=== PATIENT | male | born 1955 | race Caucasian/White ===

== ENCOUNTER → 2018-02-28 | Outpatient (CLI) | payer OTHER ==
[~2018-02-28] MED LIST: ALDACTONE25 MG PO; ASPIR 8181 MG PO; AUGMENTIN 875-1 EACH PO; CIPRO500 MG PO; CLINDAMYCIN HC300 MG PO; FLOMAX0.4 MG PO; GABAPENTIN300 MG PO; GLYBURIDE5 MG PO; HYDROCODON-ACE1 EAC9 PO; Insulin Detemir SQ; LEVAQUIN500 MG PO; LIPITOR20 MG; LIPITOR20 MG PO; LOSARTAN-HCTZ1 EAC1 PO; METFORMIN HCL500 MG PO; MINOCYCLINE HCL50 MG PO; NICODERM CQ1 EACH TOP; NORCO 7.5-3251 EACH PO; NORVASC5 MG PO; PEPCID20 MG PO; PHENERGAN SUPP25 MG PO; PLAVIX75 MG PO; TOPROL XL25 MG PO; ULTRAM50 MG PO; Z.0.AUGMENTIN 875-1 PO; Z.0.LOSARTAN POTAS10 PO; Z.0.VICODIN HP TAB1 PO; Z.2.METFORMIN HCL500 PO; ZOFRAN ODT4 MG SL; trental PO
--- NOTE | 2018-02-28 09:58 | Diagnostic Imaging Report ---
PROCEDURE: Frontal and lateral views of the chest. COMPARISON: Chest radiograph 01/03/12. INDICATIONS: PRE-OP, DENIES CHEST COMPLAINTS FINDINGS: Lines/tubes: None. Lungs: Densities in the right greater than left apical regions is again noted, likely representing overlying ribs, stable since 2011. The lungs are hyperinflated. No evidence of pneumonia or pulmonary edema. Pleura: There is no pleural effusion or pneumothorax. Heart and mediastinum: The cardiomediastinal silhouette is unchanged. Bones: No acute bony abnormality. IMPRESSION: No acute radiographic abnormality. Dictated by: APRIL BAUTISTA M.D. on 02/28/2018 at 10:05 Electronically approved by: APRIL BAUTISTA M.D. on 02/28/2018 at 10:05
== END ==
LOC: RAD 08:58
PROVIDERS: ATTEND Family Medicine
DX: Z01.810 Encounter for preprocedural cardiovascular examination (principal)
CPT/HCPCS: 71046

== ENCOUNTER → 2018-03-04 | Day surgery (SDC) | payer OTHER ==
[~2018-03-04] MED LIST changes: +FENTANYL CITRATE/PF 100MCG/2 ML INJ ONE; +MIDAZOLAM HCL 2 MG/2 ML VIAL ONE; +OR PHACO EYE KIT ONE; +PREOP PHACO EYE KIT ONE
--- OUTSIDE RECORDS SUMMARY | 2018-03-04 14:51 | XMS REPORT ---
Author Author [facility] [place] Address Unknown Phone Unavailable Care Team Providers Care [employer] Name Role Phone HORACIO US Unavailable Unavailable Problems This patient has no known problems. Allergies, Adverse Reactions, Alerts This patient has no known allergies or adverse reactions. Medications This patient has no known medications. Results Test Description Test Time Test Comments Text Results Atomic Results Result Comments CHEST 2 VIEWS 2018-02-28 10:05:00 [facility] [address] [address] Patient Name: TERESA ODOM MR #: [id number] : 1955 Age/Sex: 62/M Req #: [id number] Adm Physician: Ordered by: MAGEN NOBLE, HORACIO Matta MD Report #: [id number] Location: [facility] Room/Bed: Procedure: [id number] DX/CHEST 2 VIEWS Exam Date: 02/28/18 Exam Time: 0915 REPORT STATUS: Signed PROCEDURE: Frontal and lateral views of the chest. COMPARISON: Chest radiograph 01/03/12. INDICATIONS: PRE-OP, DENIES CHEST COMPLAINTS FINDINGS: Lines/tubes: None. Lungs: Densities in the right greater than left apical regions is again noted, likely representing overlying ribs, stable since 2011. The lungs are hyperinflated. No evidence of pneumonia or pulmonary edema. Pleura: There is no pleural effusion or pneumothorax. Heart and mediastinum: The cardiomediastinal silhouette is unchanged. Bones: No acute bony abnormality. IMPRESSION: No acute radiographic abnormality. Dictated by: APRIL BAUTISTA M.D. on 02/28/2018 at 10:05 Electronically approved by: APRIL BAUTISTA M.D. on 02/28/2018 at 10:05 Dictated By: APRIL BAUTISTA MD [id number] Transcribed By: MORIS on 02/28/18 1005 COPY TO: HORACIO US
[2018-03-04 16:15] VITALS: BP 164/64
== END | disposition home or self-care (01) ==
LOC: OR 13:01
PROVIDERS: ATTEND Ophthalmology
DX: H25.12 Age-related nuclear cataract, left eye (principal); E11.9 Type 2 diabetes mellitus without complications; I25.10 Atherosclerotic heart disease of native coronary artery without angina pectoris; I10 Essential (primary) hypertension; Z79.02 Long term (current) use of antithrombotics/antiplatelets; Z79.84 Long term (current) use of oral hypoglycemic drugs
CPT/HCPCS: 36415; 66984; 82948; J2250; V2632

== ENCOUNTER → 2018-03-18 | Day surgery (SDC) | payer OTHER ==
[~2018-03-18] MED LIST changes: +LABETALOL HCL 5 MG/ML 20ML VIAL ONE
[2018-03-18 11:30] VITALS: BP 134/71
== END | disposition home or self-care (01) ==
LOC: OR 07:52
PROVIDERS: ATTEND Ophthalmology
DX: H25.11 Age-related nuclear cataract, right eye (principal); E11.51 Type 2 diabetes mellitus with diabetic peripheral angiopathy without gangrene; I25.10 Atherosclerotic heart disease of native coronary artery without angina pectoris; E78.00 Pure hypercholesterolemia, unspecified; I10 Essential (primary) hypertension; Z88.5 Allergy status to narcotic agent
CPT/HCPCS: 36415; 66984; 82948; J2250; J3490; V2632

== ENCOUNTER 2018-11-18 04:54 | Inpatient (IN) | payer OTHER ==
[~2018-11-18] VITALS: Ht 193 cm; Wt 111.1 kg
[~2018-11-18 04:54] MED LIST changes: -FENTANYL CITRATE/PF 100MCG/2 ML INJ ONE; -LABETALOL HCL 5 MG/ML 20ML VIAL ONE; -MIDAZOLAM HCL 2 MG/2 ML VIAL ONE; -OR PHACO EYE KIT ONE; -PREOP PHACO EYE KIT ONE
[2018-11-18 06:03] LABS: BILIRUBIN,URINE NEGATIVE (NEGATIVE); COLOR,URINE YELLOW (YELLOW); KETONES,URINE NEGATIVE (NEGATIVE); LEUKOCYTE ESTERASE ,URINE MODERATE (NEGATIVE); NITRITE,URINE NEGATIVE (NEGATIVE); URINE UROBILINOGEN 0.2 mg/dL (0.2 - 1)
[2018-11-18 06:04] LABS: CLARITY,URINE CLOUDY (CLEAR); PROTEIN,URINE DIPSTICK 3+ (NEGATIVE)
[2018-11-18 06:10] LABS: INR 1.18; PROTHROMBIN TIME 15.6 seconds (11.9-14.5)
[2018-11-18] MEDS ORDERED: ONDANSETRON HCL INJ 2MG/ML 2ML 2 MG/ML VIAL IV STA (06:11)
[2018-11-18 06:17] LABS: ALBUMIN 2.8 g/dL (3.5-5.0); ALBUMIN/GLOBULIN RATIO 0.6 (0.8-2.0); ANION GAP 13.6 mmol/L (8-16); CALCIUM 9.1 mg/dL (8.4-10.2); CREATININE, SERUM 2.19 mg/dL (0.72-1.25); POTASSIUM 4.6 mmol/L (3.5-5.1)
[2018-11-18 06:27] LABS: BASOPHILS # (AUTO) 0.1 (0.0-0.1); BASOPHILS % 0.9 % (0.0-1.0); EOSINOPHILS # (AUTO) 0.6 (0.0-0.4); EOSINOPHILS % 3.9 % (0.0-6.0); HEMATOCRIT 29.5 % (38.2-49.6); HEMOGLOBIN 9.3 g/dL (14.0-18.0); LYMPHOCYTES # (AUTO) 2.1 (1.0-3.2); LYMPHOCYTES % 13.9 % (18.0-39.1); MEAN CORPUSCULAR HEMOGLOBIN 24.6 pg (28-32); MEAN CORPUSCULAR HGB CONC 31.5 g/dL (31-35); MONOCYTES # (AUTO) 0.9 (0.2-0.8); MONOCYTES % 6.3 % (4.4-11.3); NEUTROPHILS % 74.3 % (38.7-80.0); PLATELET COUNT 728 x10e3/uL (140-360); RED BLOOD COUNT 3.78 x10e6/uL (4.3-5.7); RED CELL DISTRIBUTION WIDTH 15.2 % (11.7-14.4)
[2018-11-18 06:33] LABS: EPITHELIAL CELLS,URINE MANY /LPF
[2018-11-18 06:35] LABS: BACTERIA,URINE FEW /HPF; RBC,URINE 0-5 /HPF (0-5); TRANSITIONAL EPI CELLS,URINE FEW; WBC,URINE (MAN) >50 /HPF (0-5)
--- NOTE | 2018-11-18 06:44 | Diagnostic Imaging Report ---
EXAMINATION: CHEST SINGLE (PORTABLE) COMPARISON: Report of chest x-ray performed 08/06/2015 INDICATION: Weakness ^weakness ^[id number] ^0615 DISCUSSION: Frontal view of the chest obtained at 0605 hours. HEART AND MEDIASTINUM: The cardiomediastinal silhouette is unremarkable. LINES: None. LUNGS: The lungs are diffusely hyperinflated. No pneumonia or pulmonary edema. PLEURA: No pleural effusion or pneumothorax. BONES AND SOFT TISSUES: No focal osseous lesion. Degenerative changes of the shoulders and acromioclavicular joints. The soft tissues are normal. IMPRESSION: Pulmonary hyperinflation suggestive of small airways disease. No acute cardiopulmonary process Signed by: Dr. Jane Swenson MD on 11/18/2018 6:41 AM
[2018-11-18] MEDS ORDERED: ONDANSETRON HCL INJ 2MG/ML 2ML 2 MG/ML VIAL IV PRN (06:45)
[2018-11-18] MEDS ORDERED: DEXTROSE 50% SYRINGE 50 ML IV PRN (07:15)
[2018-11-18] MEDS ORDERED: INSULIN REGULAR, HUMAN 100 UNIT/1 ML 3ML VIAL SQ SCH (07:30)
[2018-11-18] MEDS ORDERED: LACTATED RINGER'S 1,000 ML IV ONE (12:00)
[2018-11-18] MEDS ORDERED: CLONIDINE HCL 0.1 MG TAB PO PRN (12:15)
[2018-11-18] MEDS ORDERED: LACTULOSE SYRUP 20 GM/30 ML UDC PO ONE (12:15)
[2018-11-18] MEDS ORDERED: VANCOMYCIN 1GM/NS 250 ML 250 ML IV ONE (12:30)
[2018-11-18] MEDS: PANTOPRAZOLE SOD 40 MG TABEC PO SCH (13:22)
[2018-11-18] MEDS ORDERED: PIPER-TAZ 3.375 GM / NS 50ML IV SCH (14:00)
[2018-11-18] MEDS: PIPER-TAZ 3.375 GM 50 ML IV SCH ×2 (14:09→21:14)
--- NOTE | 2018-11-18 15:27 | Diagnostic Imaging Report ---
Exam: Right foot series, 3 views. Clinical History: Diabetic ulcer, concern for osteomyelitis Comparison: None. Findings: 3 views of the right foot demonstrate no acute fracture or dislocation. No significant soft tissue swelling or specific radiographic evidence of osteomyelitis. Degenerative bony proliferative changes involve the midfoot. Achilles enthesopathy and small plantar calcaneal spur. Impression: No acute osseous injury. No specific radiographic findings of osteomyelitis. Degenerative changes as above. Signed by: Norma Neil MD on 11/18/2018 3:24 PM
[2018-11-18 16:00] VITALS: BP 162/69
[2018-11-18] MEDS: LACTOBACILLUS ACIDOPHILUS CAPSULE PO SCH (16:51)
[2018-11-18] MEDS: INSULIN LISPRO 100 UNIT/1 ML 3ML VIAL SQ SCH ×2 (17:20→20:22)
[2018-11-18 18:02] VITALS: BP 162/69
[2018-11-18 20:00] VITALS: BP 148/65
[2018-11-18] MEDS: ATORVASTATIN 20 MG TAB PO SCH (20:57)
[2018-11-18 21:00] VITALS: BP 148/65
[2018-11-18] MEDS: HEPARIN SOD (PORCINE) 5,000 UNIT/ML VIAL SC SCH (21:30)
--- NOTE | 2018-11-18 21:30 | NUR ---
COMPLETED DRESSING CHANGE TO RIGHT FOOT. PATIENT TOLERATE WELL
[2018-11-19] VITALS (8 sets, daily range): BP systolic 136–174; BP diastolic 58–72
[2018-11-19] MEDS ORDERED: SODIUM CHLORIDE 0.9% 250ML 250 ML ONE (04:09)
[2018-11-19 05:37] LABS: BASOPHILS # (AUTO) 0.1 (0.0-0.1); BASOPHILS % 0.9 % (0.0-1.0); EOSINOPHILS # (AUTO) 0.5 (0.0-0.4); EOSINOPHILS % 4.3 % (0.0-6.0); HEMATOCRIT 26.8 % (38.2-49.6); HEMOGLOBIN 8.4 g/dL (14.0-18.0); LYMPHOCYTES # (AUTO) 1.8 (1.0-3.2); LYMPHOCYTES % 15.1 % (18.0-39.1); MEAN CORPUSCULAR HEMOGLOBIN 24.8 pg (28-32); MEAN CORPUSCULAR HGB CONC 31.3 g/dL (31-35); MEAN CORPUSCULAR VOLUME 79.1 fL (81-99); MONOCYTES # (AUTO) 0.9 (0.2-0.8); MONOCYTES % 7.2 % (4.4-11.3); NEUTROPHILS # (AUTO) 8.5 (2.1-6.9); NEUTROPHILS % 72.1 % (38.7-80.0); PLATELET COUNT 549 x10e3/uL (140-360); RED BLOOD COUNT 3.39 x10e6/uL (4.3-5.7); RED CELL DISTRIBUTION WIDTH 15.2 % (11.7-14.4)
[2018-11-19 05:46] LABS: INR 1.02; PROTHROMBIN TIME 13.9 seconds (11.9-14.5)
[2018-11-19 05:47] LABS: PARTIAL THROMBOPLASTIN TIME 34.7 seconds (23.8-35.5)
[2018-11-19 05:55] LABS: ANION GAP 10.7 mmol/L (8-16); CALCIUM 8.5 mg/dL (8.4-10.2); CHOL/HDL RATIO 4.3 (3.9-4.7); CREATININE, SERUM 2.64 mg/dL (0.72-1.25); POTASSIUM 4.7 mmol/L (3.5-5.1)
[2018-11-19] MEDS: PIPER-TAZ 3.375 GM 50 ML IV SCH (06:00)
[2018-11-19 06:23] LABS: % IRON SATURATION 5 % (15-50); IRON 12 ug/dL (65-175); TOTAL IRON BINDING CAPACITY 239 ug/dL (261-478); TRANSFERRIN 171 mg/dL (174-364)
--- NOTE | 2018-11-19 07:04 | NUR ---
RCD PT AT BED PT IS ALERT AND ORIENTED PT RESTING ON BED NO SIGNS OF ANY DISTRESS NOTED IV PATENT BED LOW AND LOCKED CALL LIGHT IN REACH
[2018-11-19] MEDS: PANTOPRAZOLE SOD 40 MG TABEC PO SCH (07:30)
[2018-11-19] MEDS: INSULIN LISPRO 100 UNIT/1 ML 3ML VIAL SQ SCH ×4 (07:30→20:56)
[2018-11-19] MEDS: LACTOBACILLUS ACIDOPHILUS CAPSULE PO SCH ×2 (09:00→16:55)
[2018-11-19] MEDS: CLOPIDOGREL BISULFATE 75 MG TAB PO SCH (09:00)
[2018-11-19] MEDS: HEPARIN SOD (PORCINE) 5,000 UNIT/ML VIAL SC SCH ×2 (09:00→21:20)
[2018-11-19] MEDS ORDERED: LACTATED RINGER'S 1,000 ML IV ONE (10:45)
[2018-11-19] MEDS: IRON SUCROSE 100 MG in SODIUM CHLORIDE 0.9% 100 ML 100 ML IV SCH (11:00)
[2018-11-19] MEDS ORDERED: PEG (High)/E-LYTE SOLN 4,000 ML BTL PO ONE (11:30)
--- NOTE | 2018-11-19 14:15 | NUR ---
PT WENT TO PROCEDURE IN SAFE CONDITION
--- NOTE | 2018-11-19 14:22 | NUR ---
Nutrition Screen Note RD Recommendation(s) for Physician / Nutrition Prescription: Rec adding ADA 2000 to cardiac diet Plan of Care: RD following, monitoring for tolerance and adequacy Nutrition reason for involvement: Nutrition risk trigger MST Primary Dx: weakness and anemia PMH: no H&P indicated RD Assessment: (11/19) 63yo M, who was admitted for weakness and anemia. Visited pt in the room. Pt reports eating well prior and during hospital stay. Stable weight. Pt denies any nausea or vomiting. Pt denies any chewing or swallowing difficulty. Pt will be given laxatives tonight for constipation. Will continue to monitor and follow. Malnutrition Evaluation (11/19/2018) The patient does not meet criteria for a specified degree of malnutrition at this time. Will re-evaluate at follow-up as appropriate. Diet Education Needs Assessment: Diet education not indicated. Nutrition Care Level: Low Signed by Sandy Simpson, MS, RD, LD
[2018-11-19] MEDS ORDERED: IOPAMIDOL 200 MG/ML 20 ML VIAL IT ONE (14:45)
--- NOTE | 2018-11-19 15:30 | NUR ---
PT BACK AFTER PROCEDURE
--- NOTE | 2018-11-19 16:37 | Diagnostic Imaging Report ---
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 Frontal Air Kerma: 30.9 mGy Contrast used: 15 cc Isovue 200 Estimated blood loss: None Specimens: None Implants: None DISCUSSION: The patient was positioned in the supine position on the angiographic table. A environmental health and safety leader image was obtained prior to contrast injection. Under continuous fluoroscopic guidance, a 5 [place] catheter and glide wire were navigated into the most superior cutaneous sinus and dilute contrast injection performed, demonstrating low of contrast through not work of subcutaneous channels communicating with several other areas of cutaneous sinus. There was no contrast opacification of the bladder, however this is likely because of low resistance decompression through other cutaneous sinuses. The patient was transported back to the floor in good condition. FINDINGS: Subcutaneous network of communicating cutaneous sinuses without definite opacification of bladder. IMPRESSION: Contrast sinogram of cutaneous sinuses showing subcutaneous network of connected channels. No definite opacification of the bladder, however given the patient's reported large volume urine leakage, this is presumably due to decompression of contrast through lower resistance pathways out of the other cutaneous sinuses rather than a true absence of communication with the bladder. Signed by: Norma Neil MD on 11/19/2018 4:34 PM
[2018-11-19] MEDS: CARVEDILOL 3.125 MG TAB PO SCH (16:54)
--- NOTE | 2018-11-19 17:28 | NUR ---
WOUND CARE CONSULT: THIS IS A 63 YEAR OLD MALE PATIENT ADMITTED TO [facility] FOR WEAKNESS AND ANEMIA. HEAD TO TOE SKIN ASSESSMENT PERFORMED. PATIENT HAS A REHMAN 3 DIABETIC ULCER TO THE RIGHT LATERAL FOOT MEASURING 3.7X3.5X0.7CM, 95% ESCHAR AND SLOUGH AND 5% PINK GRANULATION TO WOUND BED WITH PALPABLE BONES. NO PULSES NOTED WITH PALPATION TO PT AND DP PULSES. WOUND CULTURE OBTAINED FROM ULCER. DR. SANCHEZ HERE AT BEDSIDE TO ASSESS PATIENT; SHE IS EMPLOYEE WELLNESS/FITNESS COORDINATOR COVERING FOR DR. Eric PELLETIER. NO OTHER WOUNDS NOTED. PATIENT HAS OLD LEFT TMA SITE; INTACT. LABS: WBC11.74 OwnG5L0.5 ALB2.8 [id number] TOTAL PROTEIN 7.4 MEDICATIONS: ZOSYN RIGHT FOOT XRAY = NEGATIVE OSTEOMYELITIS LOWER EXT U/S = PENDING RECOMMENDATION: -APPLY ALTERNATING PRESSURE RELIEF MATTRESS. -APPLY RIGHT FOOT HEEL PROTECTOR WITH PILLOW SUSPENSION. -WOUND CULTURE TO RIGHT LATERAL FOOT ULCER OBTAINED. -NURSING TO CLEAN RIGHT LATERAL FOOT REHMAN 3 DIABETIC ULCER WITH NORMAL SALINE, PAT DRY, APPLY BETADINE WET TO DRY DRESSING; CHANGE DAILY AND PRN. -ENCOURAGE PATIENT TO TURN EVERY 2 HOURS AND PRN. THANK YOU FOR THIS WOUND CARE CONSULT. Addendum: 11/19/18 at 1751 by Cristina Mace RN Amended: Links added.
--- NOTE | 2018-11-19 18:42 | NUR ---
PT RESTING ON BED BED SIDE REPORT GIVEN TO ONCOMING NURSE
--- NOTE | 2018-11-19 18:45 | Consultation ---
DATE OF CONSULTATION: 11/19/[address] Tate covering for Dr. Janes Ambrocio. HISTORY OF PRESENT ILLNESS: This is a 63-year-old male, well known to Dr. Ambrocio. He has had history of ulcers in the past. He says he had a large wound at the medial aspect of the right foot that he healed. On the left, two weeks ago, he developed an ulcer. He saw him in the clinic. He began him on antibiotics. He was supposed to follow up this week, but because he got infected, he came into the hospital. PAST MEDICAL HISTORY: Diabetes, history of previous amputation, hypertension, neuropathy. FAMILY HISTORY: History of cancer, diabetes, hypertension, cardiac disease. ALLERGIES: MORPHINE. MEDICATIONS: Please refer to MAR. Of interest to this consult are piperacillin with tazobactam. IMAGING DATA: Foot x-ray is negative for osteomyelitis. Lower extremity ultrasound is pending result. LABORATORY DATA: His white blood count is decreasing, it went from 14.79 to 11.75. MICROBIOLOGY: He is pending culture and sensitivity. REVIEW OF SYSTEMS: Full-thickness ulcer to the lateral aspect of the right foot. PHYSICAL EXAMINATION: Pedal pulses are nonpalpable. Capillary filling time is delayed. There is no pedal hair growth noted. Skin is thin, shiny and atrophic. There is a full-thickness ulcer down to the level of the bone on the right. Erythema and edema are localized. At this point, no streaking erythema, no ascending lymphangitis. He has a cavus type of foot, it is nonreducible. Protective threshold is absent. ASSESSMENT: 1. Ulcer grade 3, right foot. 2. Diabetes with neuropathy and peripheral vascular disease. PLAN: At this point, he is pending vascular studies. He is refusing possible intervention normal and I suspect it will be since he has had a stent in the past, but he is no longer interested in any further treatment. I discussed with him that he is going to need revascularization to heal the wound on the lateral aspect if it is possible, he needs to offload the area, he is going to need specialized wound care; if he does not, he is going to require an amputation and possibly a more proximal amputation and he is aware of this. I have answered all questions. In the interim, we will do Betadine wet-to-dry, continue IV antibiotics, continue offloading and I will continue to follow. Thank you for letting me participate in the care of this patient. BETH Soler/VANESSA /[id number]
[2018-11-19] MEDS: TEMAZEPAM 15 MG CAP PO SCH (21:08)
[2018-11-19] MEDS: PIPERACILLIN/TAZOBAC 3.375 GM in SODIUM CHLORIDE 0.9% 100 ML IV SCH (21:08)
[2018-11-19] MEDS: ATORVASTATIN 20 MG TAB PO SCH (21:08)
[2018-11-20] VITALS (7 sets, daily range): BP systolic 132–152; BP diastolic 65–67
--- NOTE | 2018-11-20 01:24 | NUR ---
PATIENT REPORTED HE HAD 1 BM AT THIS TIME
[2018-11-20 05:30] LABS: BASOPHILS # (AUTO) 0.1 (0.0-0.1); BASOPHILS % 0.8 % (0.0-1.0); EOSINOPHILS # (AUTO) 0.4 (0.0-0.4); EOSINOPHILS % 4.1 % (0.0-6.0); HEMATOCRIT 24.4 % (38.2-49.6); LYMPHOCYTES # (AUTO) 1.7 (1.0-3.2); LYMPHOCYTES % 16.6 % (18.0-39.1); MEAN CORPUSCULAR HEMOGLOBIN 24.5 pg (28-32); MEAN CORPUSCULAR HGB CONC 31.1 g/dL (31-35); MEAN CORPUSCULAR VOLUME 78.7 fL (81-99); MONOCYTES # (AUTO) 0.9 (0.2-0.8); NEUTROPHILS # (AUTO) 7.2 (2.1-6.9); NEUTROPHILS % 69.1 % (38.7-80.0); PLATELET COUNT 459 x10e3/uL (140-360); RED CELL DISTRIBUTION WIDTH 15.4 % (11.7-14.4)
[2018-11-20 05:37] LABS: HEMOGLOBIN 7.6 g/dL (14.0-18.0)
[2018-11-20 06:01] LABS: ANION GAP 10.8 mmol/L (8-16); CALCIUM 8.1 mg/dL (8.4-10.2); CREATININE, SERUM 2.17 mg/dL (0.72-1.25); POTASSIUM 4.8 mmol/L (3.5-5.1)
--- NOTE | 2018-11-20 07:28 | NUR ---
PAGED DR PORTILLO AND NOTIFIED HEMOGLOBIN LEVEL HE SAID JUST WATCH THE PT
[2018-11-20] MEDS: PANTOPRAZOLE SOD 40 MG TABEC PO SCH (07:30)
[2018-11-20] MEDS: INSULIN LISPRO 100 UNIT/1 ML 3ML VIAL SQ SCH ×5 (07:30→20:30)
[2018-11-20] MEDS: CARVEDILOL 3.125 MG TAB PO SCH ×2 (08:00→17:00)
[2018-11-20] MEDS: PIPERACILLIN/TAZOBAC 3.375 GM in SODIUM CHLORIDE 0.9% 100 ML IV SCH (09:00)
[2018-11-20] MEDS: CLOPIDOGREL BISULFATE 75 MG TAB PO SCH (09:00)
[2018-11-20] MEDS: LACTOBACILLUS ACIDOPHILUS CAPSULE PO SCH ×2 (09:00→17:00)
--- NOTE | 2018-11-20 09:00 | NUR ---
heparin not given pt said he got the heparin this morning at 5 am
[2018-11-20] MEDS: IRON SUCROSE 100 MG in SODIUM CHLORIDE 0.9% 100 ML 100 ML IV SCH (11:00)
[2018-11-20] MEDS: NIFEDIPINE CR 30 MG TAB PO SCH (11:30)
--- NOTE | 2018-11-20 12:00 | NUR ---
DRESSING CHANGED ON RT FOOT
--- NOTE | 2018-11-20 17:54 | Consultation ---
DATE OF CONSULTATION: 11/20/2018 Cardiology Consultation REASON FOR CONSULTATION: Peripheral arterial disease. CONSULTING PHYSICIAN: Dr. Diehl. HISTORY OF PRESENT ILLNESS: Mr. Kaur is a 63-year-old male, who is a patient of Dr. Ambrocio and reports that he has been going there for tear over right leg ulcer. However, he reports that he has not been feeling well and for that reason, he selected emergency services. He reports that he is not willing to have any interventions done for his peripheral arterial disease. However, he had an arterial Doppler done on November 19, 2018, that shows total occlusion of the mid segment of the right femoral artery. He states that he does not wish to pursue any further hospital care and intends to go home tomorrow. For that reason, he does not want anymore questioning or anymore care offered to him. PHYSICAL EXAMINATION: Unable to complete. ASSESSMENT: 1. Ulcer to the right foot. 2. Peripheral arterial disease with past history of multiple interventions, last intervention done in 2016. 3. Diabetes mellitus type 2. 4. Anemia. 5. Coronary artery disease status post stent placement. RECOMMENDATION: We will discontinue services at this time until the patient decides to let us help him. For now, we will let Dr. Diehl manage his care. The patient is aware that he has a risk of limb loss and he states he will rather take that other than affect his kidneys anymore. He reports he intends to leave the hospital tomorrow. Dictated by Lay Rod NP MD KEN Landeros/VANESSA /[id number]
--- NOTE | 2018-11-20 18:40 | NUR ---
PT RESTING ON BED BED SIDE REPORT GIVEN TO ONCOMING NURSE
[2018-11-20] MEDS: TEMAZEPAM 15 MG CAP PO SCH (20:28)
[2018-11-20] MEDS: ATORVASTATIN 20 MG TAB PO SCH (20:28)
[2018-11-21 02:00] VITALS: BP 103/57
[2018-11-21 02:01] VITALS: BP 149/66
[2018-11-21 05:24] LABS: BASOPHILS # (AUTO) 0.1 (0.0-0.1); BASOPHILS % 1.2 % (0.0-1.0); EOSINOPHILS # (AUTO) 0.6 (0.0-0.4); HEMATOCRIT 24.4 % (38.2-49.6); HEMOGLOBIN 7.6 g/dL (14.0-18.0); LYMPHOCYTES # (AUTO) 1.6 (1.0-3.2); LYMPHOCYTES % 17.1 % (18.0-39.1); MEAN CORPUSCULAR HEMOGLOBIN 24.8 pg (28-32); MEAN CORPUSCULAR HGB CONC 31.1 g/dL (31-35); MEAN CORPUSCULAR VOLUME 79.5 fL (81-99); MONOCYTES # (AUTO) 0.9 (0.2-0.8); MONOCYTES % 9.6 % (4.4-11.3); NEUTROPHILS % 65.8 % (38.7-80.0); PLATELET COUNT 435 x10e3/uL (140-360); RED BLOOD COUNT 3.07 x10e6/uL (4.3-5.7); RED CELL DISTRIBUTION WIDTH 15.6 % (11.7-14.4)
[2018-11-21 05:27] VITALS: BP 148/64
[2018-11-21 05:40] LABS: ANION GAP 11.9 mmol/L (8-16); CALCIUM 8.2 mg/dL (8.4-10.2); CREATININE, SERUM 2.11 mg/dL (0.72-1.25); POTASSIUM 4.9 mmol/L (3.5-5.1)
[2018-11-21] MEDS: INSULIN LISPRO 100 UNIT/1 ML 3ML VIAL SQ SCH ×2 (07:30→11:30)
[2018-11-21 08:00] VITALS: BP 157/70
[2018-11-21 08:10] VITALS: BP 157/70
[2018-11-21] MEDS: CARVEDILOL 3.125 MG TAB PO SCH (09:14)
[2018-11-21] MEDS: CLOPIDOGREL BISULFATE 75 MG TAB PO SCH (09:14)
[2018-11-21] MEDS: LACTOBACILLUS ACIDOPHILUS CAPSULE PO SCH (09:14)
[2018-11-21] MEDS: PANTOPRAZOLE SOD 40 MG TABEC PO SCH (09:14)
[2018-11-21] MEDS: NIFEDIPINE CR 30 MG TAB PO SCH (09:14)
[2018-11-21 12:00] VITALS: BP 153/65
[2018-11-21] MEDS: IRON SUCROSE 100 MG in SODIUM CHLORIDE 0.9% 100 ML 100 ML IV SCH (12:00)
[2018-11-21] MEDS ORDERED: RESTORIL15 MG PO (12:52)
--- NOTE | 2018-11-21 13:10 | NUR ---
right AC IV discontinued. No s/s of acute distress noted. 2x2 gauze and tape placed. Taken via wheelchair by PCT to personal. Accompanied by and daughter. AAOX4 to time, person, place, situation. Respirations even and unlabored. Dressing to right foot clean, dry, and intact. Discharge instruction, rx, and all personal belongings taken with patient.
[2018-11-21] MEDS ORDERED: ONDANSETRON HCL 4 MG ORAL DISINTEGRATING TAB PO PRN (13:45)
--- NOTE | 2018-11-21 14:47 | Progress Note ---
DATE: 11/21/2018 Dr. Tate covering for Dr. Janes Ambrocio. HISTORY OF PRESENT ILLNESS: The patient was seen at bedside. White blood count has decreased. It is down to 9.13. He did see Dr. Luna for Interventional Cardiology, but he does not want any procedures. He is aware that he is a high risk for amputation, but wants to do local wound care. Pedal pulses are not palpable. Capillary filling time is delayed. Skin temperature is warm to cooler. No pedal hair growth is noted. There is a full-thickness ulcer to the level of the bone on the foot, right. Capillary filling time is delayed. Skin is thin, shiny and atrophic. Erythema and edema have subsided. No streaking erythema. No ascending lymphangitis. Cavus type foot, now reducible with a drop foot. ASSESSMENT: 1. Ulcer grade 3, right foot. 2. Diabetes with neuropathy and peripheral vascular disease. 3. Cavus foot with a drop foot. PLAN: At this point, he no longer want to have any vascular interventions, so we are going to try local wound care. I am going to change the prescription to Santyl and would be sent to the pharmacy. He will do Santyl daily and he will follow up with me in the office. He is currently on antibiotic, which is responding to treatment of his white blood count and clinically the infection is subsiding. I will see him back in the office. He will call the office for any questions, concerns, or new problems arise. BETH Soler/VANESSA /[id number]
--- NOTE | 2018-11-22 00:30 | Discharge Summary ---
PRIMARY CARE DOCTOR: Dr. Musa Dunham. FINAL DIAGNOSIS: Iron deficiency anemia. SECONDARY DIAGNOSES: 1. Right foot chronic diabetic ulcer. 2. Severe peripheral vascular disease including right femoral artery occlusion. 3. Stage 3 chronic kidney disease. 4. 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 5. Chronic obstructive pulmonary disease, stable. 6. Diabetes, stable. 7. Uncontrolled hypertension, better. CONSULTANTS: 1. Dr. Luna, Cardiology. 2. Dr. Janes Ambrocio, Podiatry. 3. Dr. De Anda, Urology. PROCEDURES/STUDIES PERFORMED: 1. Right leg arterial Doppler. 2. Fistulogram. HISTORY: Per [facility] and P. HOSPITAL COURSE: The patient was admitted with generalized weakness. This is likely due to iron deficiency anemia. His hemoglobin on admission was 9.3, at the time of discharge it was 7.6, but remained stable. Currently, the patient actually felt a little better, therefore transfusion was not necessary. He did receive intravenous infusion. The patient also came in with right chronic diabetic foot ulcer. Initially, WBC was 14.8. At the time of discharge, it was 9. The patient's C-reactive protein was normal. X-ray was negative for osteomyelitis. Therefore, this appears to be just chronic infection. No active infection is identified. However, on the arterial Doppler, the patient does have a complete right femoral artery occlusion. The patient was evaluated by a content development specialist. The patient states that he has had four intervention done in his legs already and they all failed, therefore he is now interested in having another one, especially given his stage 3 chronic kidney disease. Again, he did receive empirical antibiotics here, however, I will not give him any more since he just completed a course of p.o. antibiotic as an outpatient after the ulcer was debrided two weeks ago and also his C-reactive protein is normal as well. 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 Dr. De Anda was consulted. A fistulogram was done, however, we could not demonstrate a connection into the bladder. At this time, I will have him follow up with Dr. De Anda as an outpatient. The patient was seen and examined today. I have updated his family at the bedside in details as well. It took 33 minutes total to discharge the patient. The patient will follow up with his primary care doctor in two weeks as well. CONDITION ON DISCHARGE: Improved. DISCHARGE MEDICATIONS: Please see medication reconciliation form. MD JESSY Liriano/VANESSA /[id number] cc: Musa Dunham
== END 2018-11-21 13:10 | disposition home or self-care (01) | DRG 812 ==
LOC: ER 04:54 → ERHOLD 06:39 → MED/SURG2 16:06
PROVIDERS: ADMIT Internal Medicine; ATTEND Internal Medicine
PROC: BT101ZZ Fluoroscopy of Bladder using Low Osmolar Contrast (ICD-10-PCS; principal; 2018-11-19)
DX: D50.9 Iron deficiency anemia, unspecified (principal); N32.2 Vesical fistula, not elsewhere classified; L97.518 Non-pressure chronic ulcer of other part of right foot with other specified severity; E11.621 Type 2 diabetes mellitus with foot ulcer; Z79.4 Long term (current) use of insulin; E11.51 Type 2 diabetes mellitus with diabetic peripheral angiopathy without gangrene; J44.9 Chronic obstructive pulmonary disease, unspecified; E11.22 Type 2 diabetes mellitus with diabetic chronic kidney disease; E11.65 Type 2 diabetes mellitus with hyperglycemia; I12.9 Hypertensive chronic kidney disease with stage 1 through stage 4 chronic kidney disease, or unspecified chronic kidney disease; N18.3 Chronic kidney disease, stage 3 (moderate); I25.10 Atherosclerotic heart disease of native coronary artery without angina pectoris; Z95.5 Presence of coronary angioplasty implant and graft; M21.371 Foot drop, right foot; E11.42 Type 2 diabetes mellitus with diabetic polyneuropathy
CPT/HCPCS: 36415; 71045; 76080; 80048; 80053; 80061; 81001; 82948; 83036; 83540; 84466; 84484; 85025; 85610; 85730; 86140; 87071; 87075; 87205; 93005; 93926; 97139; 99284; J1644; J1756; J2405; J2543; J3370; J7050; J7121; Q9967

== ENCOUNTER 2020-02-17 23:50 | Inpatient (IN) | payer OTHER ==
[~2020-02-17] VITALS: Ht 193 cm; Wt 111.1 kg
[~2020-02-17 23:50] MED LIST changes: +RESTORIL15 MG PO
[2020-02-18] VITALS (8 sets, daily range): BP systolic 123–148; BP diastolic 50–81
[2020-02-18] MEDS ORDERED: ONDANSETRON HCL INJ 2MG/ML 2ML 2 MG/ML VIAL IV STA (00:12)
[2020-02-18] MEDS ORDERED: SODIUM CHLORIDE 0.9% 1000ML 1,000 ML IV ONE ×2 (00:15→00:45)
[2020-02-18] MEDS ORDERED: ACETAMINOPHEN 325 MG TAB PO ONE (00:15)
[2020-02-18 00:16] LABS: BASOPHILS # (AUTO) 0.1 (0.0-0.1); BASOPHILS % 0.4 % (0.0-1.0); EOSINOPHILS # (AUTO) 0.2 (0.0-0.4); EOSINOPHILS % 0.5 % (0.0-6.0); HEMATOCRIT 42.1 % (38.2-49.6); HEMOGLOBIN 14.1 g/dL (14.0-18.0); LYMPHOCYTES # (AUTO) 1.9 (1.0-3.2); LYMPHOCYTES % 6.2 % (18.0-39.1); MEAN CORPUSCULAR HEMOGLOBIN 29.7 pg (28-32); MEAN CORPUSCULAR HGB CONC 33.5 g/dL (31-35); MEAN CORPUSCULAR VOLUME 88.8 fL (81-99); MONOCYTES % 6.8 % (4.4-11.3); NEUTROPHILS # (AUTO) 25.5 (2.1-6.9); NEUTROPHILS % 85.1 % (38.7-80.0); PLATELET COUNT 375 x10e3/uL (140-360); RED BLOOD COUNT 4.74 x10e6/uL (4.3-5.7); RED CELL DISTRIBUTION WIDTH 13.6 % (11.7-14.4)
[2020-02-18] MEDS ORDERED: ONDANSETRON HCL INJ 2MG/ML 2ML 2 MG/ML VIAL ONE (00:26)
[2020-02-18] MEDS ORDERED: HYDROMORPHONE 1MG/1ML INJ IV ONE (00:30)
[2020-02-18] MEDS ORDERED: PIPER-TAZ 3.375 GM 50 ML ONE (00:30)
[2020-02-18] MEDS: PIPERACILLIN/TAZO 2.25 GM 50 ML IV SCH ×4 (00:30→21:17)
[2020-02-18 00:33] LABS: ALBUMIN/GLOBULIN RATIO 0.9 (0.8-2.0); ANION GAP 20.1 mmol/L (8-16); CALCIUM 9.6 mg/dL (8.4-10.2); CREATININE, SERUM 2.29 mg/dL (0.72-1.25); POTASSIUM 4.1 mmol/L (3.5-5.1)
[2020-02-18 00:40] LABS: CREATINE KINASE MB 0.7 ng/mL (0-5.0)
[2020-02-18] MEDS: CLINDAMYCIN 300MG 50 ML IV SCH ×4 (01:23→22:24)
[2020-02-18 01:27] LABS: BILIRUBIN,URINE NEGATIVE (NEGATIVE); CLARITY,URINE CLOUDY (CLEAR); COLOR,URINE YELLOW (YELLOW); KETONES,URINE NEGATIVE (NEGATIVE); LEUKOCYTE ESTERASE ,URINE SMALL (NEGATIVE); NITRITE,URINE NEGATIVE (NEGATIVE); PROTEIN,URINE DIPSTICK >=300 (NEGATIVE); URINE UROBILINOGEN 0.2 mg/dL (0.2 - 1)
[2020-02-18 01:37] LABS: BACTERIA,URINE MANY /HPF; EPITHELIAL CELLS,URINE MODERATE /LPF; WBC,URINE (MAN) 21-50 /HPF (0-5)
[2020-02-18] MEDS ORDERED: ONDANSETRON HCL INJ 2MG/ML 2ML 2 MG/ML VIAL IV PRN (03:15)
[2020-02-18] MEDS ORDERED: ACETAMINOPHEN 325 MG TAB PO PRN (03:15)
[2020-02-18] MEDS: SODIUM CHLORIDE 0.9% 1000ML 1,000 ML IV SCH ×2 (03:45→13:23)
[2020-02-18] MEDS: HYDROMORPHONE 1MG/1ML INJ IV PRN ×6 (03:45→22:35)
[2020-02-18] MEDS: PROMETHAZINE 12.5MG/ NACL 0.9% 12.5 MG/50 ML BAG IV PRN (09:35)
[2020-02-18] MEDS: INSULIN LISPRO 100 UNIT/1 ML 3ML VIAL SQ SCH ×2 (16:06→19:57)
[2020-02-18] MEDS ORDERED: TEMAZEPAM 15 MG CAP PO PRN (21:00)
[2020-02-18] MEDS: LACTATED RINGER'S 1,000 ML INJ SCH (22:24)
[2020-02-18] MEDS: ATORVASTATIN 20 MG TAB PO SCH (22:24)
[2020-02-18] MEDS: ONDANSETRON HCL INJ 2MG/ML 2ML 2 MG/ML VIAL IV PRN (22:30)
[2020-02-19] VITALS (8 sets, daily range): BP systolic 114–149; BP diastolic 49–61
[2020-02-19] MEDS: PROMETHAZINE 12.5MG/ NACL 0.9% 12.5 MG/50 ML BAG IV PRN ×2 (01:39→15:10)
[2020-02-19] MEDS: HYDROMORPHONE 1MG/1ML INJ IV PRN ×7 (02:21→22:46)
[2020-02-19] MEDS: CLINDAMYCIN 300MG 50 ML IV SCH ×3 (05:08→21:52)
[2020-02-19 05:23] LABS: BASOPHILS # (AUTO) 0.1 (0.0-0.1); BASOPHILS % 0.3 % (0.0-1.0); EOSINOPHILS # (AUTO) 0.3 (0.0-0.4); EOSINOPHILS % 1.4 % (0.0-6.0); HEMATOCRIT 32.2 % (38.2-49.6); HEMOGLOBIN 10.2 g/dL (14.0-18.0); LYMPHOCYTES # (AUTO) 1.7 (1.0-3.2); LYMPHOCYTES % 9.5 % (18.0-39.1); MEAN CORPUSCULAR HEMOGLOBIN 29.7 pg (28-32); MEAN CORPUSCULAR HGB CONC 31.7 g/dL (31-35); MEAN CORPUSCULAR VOLUME 93.9 fL (81-99); MONOCYTES # (AUTO) 1.5 (0.2-0.8); MONOCYTES % 8.6 % (4.4-11.3); NEUTROPHILS # (AUTO) 13.8 (2.1-6.9); NEUTROPHILS % 79.6 % (38.7-80.0); PLATELET COUNT 284 x10e3/uL (140-360); RED BLOOD COUNT 3.43 x10e6/uL (4.3-5.7); RED CELL DISTRIBUTION WIDTH 13.9 % (11.7-14.4)
[2020-02-19] MEDS: ONDANSETRON HCL INJ 2MG/ML 2ML 2 MG/ML VIAL IV PRN ×2 (05:37→22:46)
[2020-02-19 05:51] LABS: ALBUMIN 2.8 g/dL (3.5-5.0); ALBUMIN/GLOBULIN RATIO 0.9 (0.8-2.0); ANION GAP 10.9 mmol/L (8-16); CALCIUM 8.1 mg/dL (8.4-10.2); CREATININE, SERUM 2.39 mg/dL (0.72-1.25); POTASSIUM 4.9 mmol/L (3.5-5.1)
[2020-02-19] MEDS: PIPERACILLIN/TAZO 2.25 GM 50 ML IV SCH ×3 (06:12→22:46)
[2020-02-19] MEDS: LACTATED RINGER'S 1,000 ML INJ SCH ×3 (06:43→10:30)
[2020-02-19] MEDS: INSULIN LISPRO 100 UNIT/1 ML 3ML VIAL SQ SCH ×4 (07:30→21:00)
[2020-02-19] MEDS ORDERED: SUCCINYLCHOLINE CHLORIDE 20 MG/ML 10ML VIAL ONE (13:52)
[2020-02-19] MEDS ORDERED: LIDOCAINE HCL 2% LOCAL INJ 5 ML SDV VIAL INJ ONE (13:52)
[2020-02-19] MEDS ORDERED: ONDANSETRON HCL INJ 2MG/ML 2ML 2 MG/ML VIAL ONE (13:52)
[2020-02-19] MEDS ORDERED: PROPOFOL IV EMULSION 10 MG/ML 20 ML VIAL ONE (13:52)
[2020-02-19] MEDS ORDERED: SEVOFLURANE INHAL SOLN 250 ML PEN BTL ONE (13:52)
[2020-02-19] MEDS ORDERED: ESMOLOL HCL 100MG/10ML 10 MG/ML VIAL ONE (13:52)
[2020-02-19] MEDS ORDERED: MIDAZOLAM HCL 2 MG/2 ML VIAL ONE (14:29)
[2020-02-19] MEDS ORDERED: FENTANYL CITRATE/PF 100MCG/2 ML INJ ONE ×2 (14:29→18:00)
[2020-02-19] MEDS ORDERED: LIDOCAINE 2%/ EPINEPHRINE 20ML MDV ONE (16:38)
[2020-02-19] MEDS ORDERED: IOPAMIDOL 300MG/ML 50ML INFUS..BTL IV ONE (16:39)
[2020-02-19] MEDS ORDERED: BUPIVACAINE 0.25% 30ML SDV INJ ONE (16:39)
[2020-02-19] MEDS ORDERED: B&O 60MG R/S 60 MG SUPP PR ONE (16:39)
[2020-02-19] MEDS ORDERED: HYDROMORPHONE 1MG/1ML INJ ONE (18:14)
[2020-02-19] MEDS: ATORVASTATIN 20 MG TAB PO SCH (21:52)
[2020-02-20] VITALS (7 sets, daily range): BP systolic 91–179; BP diastolic 47–82
[2020-02-20] MEDS: HYDROMORPHONE 1MG/1ML INJ IV PRN ×5 (02:20→23:50)
[2020-02-20] MEDS: PROMETHAZINE 12.5MG/ NACL 0.9% 12.5 MG/50 ML BAG IV PRN ×3 (02:20→23:50)
[2020-02-20] MEDS ORDERED: HYDROMORPHONE 1MG/1ML INJ IV STA (04:34)
[2020-02-20] MEDS: CLINDAMYCIN 300MG 50 ML IV SCH ×3 (05:51→22:28)
[2020-02-20] MEDS: PIPERACILLIN/TAZO 2.25 GM 50 ML IV SCH ×3 (06:00→23:50)
[2020-02-20] MEDS ORDERED: METOPROLOL TARTRATE 25 MG TAB PO ONE (07:00)
[2020-02-20] MEDS: INSULIN LISPRO 100 UNIT/1 ML 3ML VIAL SQ SCH ×4 (07:30→20:08)
[2020-02-20] MEDS: ONDANSETRON HCL INJ 2MG/ML 2ML 2 MG/ML VIAL IV PRN (08:08)
[2020-02-20] MEDS ORDERED: DIGOXIN 0.25 MG TAB PO ONE (08:15)
[2020-02-20] MEDS ORDERED: METOPROLOL SUCCINATE 50 MG TAB XL PO ONE (08:15)
[2020-02-20] MEDS: LACTATED RINGER'S 1,000 ML INJ SCH ×2 (10:27→23:50)
[2020-02-20 11:29] LABS: BASOPHILS # (AUTO) 0.1 (0.0-0.1); BASOPHILS % 0.4 % (0.0-1.0); EOSINOPHILS # (AUTO) 0.3 (0.0-0.4); EOSINOPHILS % 1.4 % (0.0-6.0); HEMATOCRIT 32.4 % (38.2-49.6); HEMOGLOBIN 10.6 g/dL (14.0-18.0); LYMPHOCYTES # (AUTO) 1.2 (1.0-3.2); LYMPHOCYTES % 6.9 % (18.0-39.1); MEAN CORPUSCULAR HEMOGLOBIN 29.8 pg (28-32); MEAN CORPUSCULAR HGB CONC 32.7 g/dL (31-35); MONOCYTES # (AUTO) 1.5 (0.2-0.8); MONOCYTES % 8.4 % (4.4-11.3); NEUTROPHILS # (AUTO) 14.7 (2.1-6.9); NEUTROPHILS % 82.4 % (38.7-80.0); PLATELET COUNT 319 x10e3/uL (140-360); RED BLOOD COUNT 3.56 x10e6/uL (4.3-5.7); RED CELL DISTRIBUTION WIDTH 13.4 % (11.7-14.4)
[2020-02-20 11:48] LABS: ANION GAP 13.3 mmol/L (8-16); CALCIUM 7.6 mg/dL (8.4-10.2); CREATININE, SERUM 2.18 mg/dL (0.72-1.25); MAGNESIUM 1.6 MG/DL (1.3-2.1); POTASSIUM 4.3 mmol/L (3.5-5.1)
[2020-02-20 12:10] LABS: THYROID STIMULATING HORMONE 3.26 uIU/mL (0.350-4.940)
[2020-02-20] MEDS: METOPROLOL TARTRATE 50 MG TAB PO SCH ×2 (14:46→22:28)
[2020-02-20] MEDS ORDERED: ENOXAPARIN SOD INJ 40 MG/0.4 ML SYR SC SCH (17:00)
[2020-02-20] MEDS ORDERED: HYDROMORPHONE 2MG/ML 2 MG/ML ML IV PRN (17:00)
[2020-02-20] MEDS: ATORVASTATIN 20 MG TAB PO SCH (20:14)
[2020-02-21] VITALS: BP 156/57
[2020-02-21] MEDS: PIPERACILLIN/TAZO 2.25 GM 50 ML IV SCH ×2 (00:30→09:00)
[2020-02-21] MEDS: HYDROMORPHONE 1MG/1ML INJ IV PRN ×3 (02:59→10:50)
[2020-02-21 04:00] VITALS: BP 142/56
[2020-02-21 06:04] LABS: BASOPHILS # (AUTO) 0.1 (0.0-0.1); BASOPHILS % 0.6 % (0.0-1.0); EOSINOPHILS # (AUTO) 0.4 (0.0-0.4); EOSINOPHILS % 2.9 % (0.0-6.0); HEMATOCRIT 27.9 % (38.2-49.6); LYMPHOCYTES # (AUTO) 1.5 (1.0-3.2); LYMPHOCYTES % 11.9 % (18.0-39.1); MEAN CORPUSCULAR HEMOGLOBIN 30.1 pg (28-32); MEAN CORPUSCULAR HGB CONC 32.3 g/dL (31-35); MEAN CORPUSCULAR VOLUME 93.3 fL (81-99); MONOCYTES # (AUTO) 1.3 (0.2-0.8); MONOCYTES % 10.4 % (4.4-11.3); NEUTROPHILS % 73.5 % (38.7-80.0); PLATELET COUNT 259 x10e3/uL (140-360); RED BLOOD COUNT 2.99 x10e6/uL (4.3-5.7); RED CELL DISTRIBUTION WIDTH 13.5 % (11.7-14.4)
[2020-02-21] MEDS: CLINDAMYCIN 300MG 50 ML IV SCH ×2 (06:07→14:00)
[2020-02-21] MEDS: METOPROLOL TARTRATE 50 MG TAB PO SCH (06:08)
[2020-02-21 06:38] LABS: ALBUMIN/GLOBULIN RATIO 0.5 (0.8-2.0); ANION GAP 12.1 mmol/L (8-16); CALCIUM 7.7 mg/dL (8.4-10.2); CHOL/HDL RATIO 4.6 (3.9-4.7); CREATININE, SERUM 2.26 mg/dL (0.72-1.25); POTASSIUM 4.1 mmol/L (3.5-5.1)
[2020-02-21] MEDS: PROMETHAZINE 12.5MG/ NACL 0.9% 12.5 MG/50 ML BAG IV PRN (06:44)
[2020-02-21 06:58] LABS: THYROID STIMULATING HORMONE 2.255 uIU/mL (0.350-4.940)
[2020-02-21] MEDS: INSULIN LISPRO 100 UNIT/1 ML 3ML VIAL SQ SCH ×2 (07:30→11:30)
[2020-02-21 09:00] VITALS: BP 139/54
[2020-02-21] MEDS: ONDANSETRON HCL INJ 2MG/ML 2ML 2 MG/ML VIAL IV PRN (10:56)
[2020-02-21] MEDS: LACTATED RINGER'S 1,000 ML INJ SCH (10:56)
[2020-02-21 11:58] VITALS: BP 125/77
[2020-02-21] MEDS ORDERED: CLINDAMYCIN HC300 MG PO (16:12)
[2020-02-21] MEDS ORDERED: TYLENOL # 31 EA PO (16:13)
[2020-02-21] MEDS ORDERED: METOPROLOL TARTRATE 50 MG TAB PO SCH (17:00)
== END 2020-02-21 16:45 | disposition home or self-care (01) | DRG 854 ==
LOC: ER 02-18 00:07 → ERHOLD 02-18 03:07 → MED/SURG2 02-18 04:02
PROVIDERS: ADMIT Internal Medicine; ATTEND Internal Medicine
PROC: 0TND8ZZ Release Urethra, Via Natural or Artificial Opening Endoscopic (ICD-10-PCS; 2020-02-19)
PROC: 0T788ZZ Dilation of Bilateral Ureters, Via Natural or Artificial Opening Endoscopic (ICD-10-PCS; 2020-02-19)
PROC: BT141ZZ Fluoroscopy of Kidneys, Ureters and Bladder using Low Osmolar Contrast (ICD-10-PCS; 2020-02-19)
PROC: 0V950ZZ Drainage of Scrotum, Open Approach (ICD-10-PCS; principal; 2020-02-21)
DX: A41.9 Sepsis, unspecified organism (principal); M46.28 Osteomyelitis of vertebra, sacral and sacrococcygeal region; N39.0 Urinary tract infection, site not specified; N17.9 Acute kidney failure, unspecified; E11.22 Type 2 diabetes mellitus with diabetic chronic kidney disease; N49.2 Inflammatory disorders of scrotum; I12.9 Hypertensive chronic kidney disease with stage 1 through stage 4 chronic kidney disease, or unspecified chronic kidney disease; N18.30 Chronic kidney disease, stage 3 unspecified; I48.0 Paroxysmal atrial fibrillation; Z79.01 Long term (current) use of anticoagulants; N35.812 Other bulbous urethral stricture, male; Z11.59 Encounter for screening for other viral diseases; B95.7 Other staphylococcus as the cause of diseases classified elsewhere; E66.9 Obesity, unspecified; Z68.29 Body mass index [BMI] 29.0-29.9, adult; Z89.429 Acquired absence of other toe(s), unspecified side; E11.628 Type 2 diabetes mellitus with other skin complications; N43.3 Hydrocele, unspecified; Q54.9 Hypospadias, unspecified
CPT/HCPCS: 36415; 71045; 74176; 74420; 80048; 80053; 80061; 81001; 82550; 82553; 82948; 83605; 83735; 84443; 84484; 85025; 87040; 87071; 87075; 87086; 87186; 87205; 93005; 93306; 99251; 99284; J0330; J1170; J1650; J2001; J2250; J2405; J2543; J2550; J3010; J7030; J7121; U0002

== ENCOUNTER 2020-06-21 05:57 | Inpatient (IN) | payer OTHER ==
[~2020-06-21] VITALS: Ht 193 cm; Wt 94.8 kg
[~2020-06-21 05:57] MED LIST changes: +TYLENOL # 31 EA PO
[2020-06-21] MEDS ORDERED: SODIUM CHLORIDE 0.9% 1000ML 1,000 ML IV STA ×2 (06:17→08:14)
[2020-06-21] MEDS ORDERED: PANTOPRAZOLE 40 MG 10ML VIAL IV STA (06:17)
[2020-06-21] MEDS ORDERED: PANTOPRAZOLE INJ 40 MG in SODIUM CHLORIDE 0.9% 50ML 50 ML IV SCH (06:30)
[2020-06-21 06:32] LABS: BASOPHILS # (AUTO) 0.2 (0.0-0.1); BASOPHILS % 0.6 % (0.0-1.0); EOSINOPHILS % 0.1 % (0.0-6.0); LYMPHOCYTES # (AUTO) 1.5 (1.0-3.2); LYMPHOCYTES % 5.3 % (18.0-39.1); MEAN CORPUSCULAR HEMOGLOBIN 24.4 pg (28-32); MEAN CORPUSCULAR HGB CONC 28.9 g/dL (31-35); MEAN CORPUSCULAR VOLUME 84.6 fL (81-99); MONOCYTES # (AUTO) 1.5 (0.2-0.8); MONOCYTES % 5.2 % (4.4-11.3); NEUTROPHILS # (AUTO) 25.1 (2.1-6.9); NEUTROPHILS % 87.8 % (38.7-80.0); PLATELET COUNT 744 x10e3/uL (140-360); RED BLOOD COUNT 2.21 x10e6/uL (4.3-5.7)
[2020-06-21] MEDS ORDERED: PANTOPRAZOL 40MG/SOD CHL 0.9% 50 ML IV ONE (06:39)
[2020-06-21 06:49] LABS: HEMATOCRIT 18.7 % (38.2-49.6); HEMOGLOBIN 5.4 g/dL (14.0-18.0)
[2020-06-21] MEDS ORDERED: SODIUM CHLORIDE 0.9% 250ML 250 ML IV ONE ×2 (07:00→23:45)
[2020-06-21 07:03] LABS: ALBUMIN 3.2 g/dL (3.5-5.0); ALBUMIN/GLOBULIN RATIO 0.7 (0.8-2.0); ANION GAP 24.5 mmol/L (8-16); CALCIUM 8.5 mg/dL (8.4-10.2); CREATININE, SERUM 3.08 mg/dL (0.72-1.25); POTASSIUM 4.5 mmol/L (3.5-5.1)
[2020-06-21 07:11] LABS: CREATINE KINASE MB 3.1 ng/mL (0-5.0)
[2020-06-21] MEDS ORDERED: ONDANSETRON HCL INJ 2MG/ML 2ML 2 MG/ML VIAL IV STA (07:23)
[2020-06-21] MEDS ORDERED: CEFTRIAXONE SOD 1 GM/NS 50 ML 50 ML IV ONE ×2 (07:30→08:30)
[2020-06-21] MEDS ORDERED: ACETAMINOPHEN 325 MG TAB PO ONE (08:30)
[2020-06-21] MEDS ORDERED: SODIUM BICARBONATE 8.4% INJ 50 ML SYR IV STA (09:00)
[2020-06-21 10:06] LABS: ANION GAP 18.3 mmol/L (8-16); CALCIUM 7.8 mg/dL (8.4-10.2); CREATININE, SERUM 2.73 mg/dL (0.72-1.25); POTASSIUM 4.3 mmol/L (3.5-5.1)
[2020-06-21 10:39] LABS: CLARITY,URINE SL CLOUDY (CLEAR); COLOR,URINE YELLOW (YELLOW); KETONES,URINE TRACE (NEGATIVE); LEUKOCYTE ESTERASE ,URINE LARGE (NEGATIVE); NITRITE,URINE NEGATIVE (NEGATIVE); PROTEIN,URINE DIPSTICK >=300 (NEGATIVE); URINE UROBILINOGEN 0.2 mg/dL (0.2 - 1)
[2020-06-21 10:51] LABS: BACTERIA,URINE MANY /HPF; WBC,URINE (MAN) >50 /HPF (0-5)
[2020-06-21 10:52] LABS: RBC,URINE 0-5 /HPF (0-5)
[2020-06-21 10:53] LABS: TRANSITIONAL EPI CELLS,URINE FEW
[2020-06-21] MEDS ORDERED: LACTATED RINGER'S 1,000 ML INJ STA (10:54)
[2020-06-21 11:01] LABS: LYMPHOCYTES % (MANUAL) 4 % (19-48); MONOCYTES % (MANUAL) 5 % (3.4-9.0); NEUTROPHILS % (MANUAL) 90 % (40-74)
[2020-06-21 11:02] LABS: ANISOCYTOSIS MARKED; HYPOCHROMASIA MODERATE; PLATELET MORPHOLOGY COMMENT NORMAL; RBC MORPHOLOGY COMMENT ABNORMAL
[2020-06-21 11:03] LABS: PLATELET ESTIMATE MODERATELY INCREASED; POLYCHROMASIA FEW
[2020-06-21] MEDS: PANTOPRAZOL 40MG/SOD CHL 0.9% 50 ML IV SCH ×4 (11:03→22:58)
[2020-06-21 11:05] LABS: ELLIPTOCYTE, RBC SLIGHT
[2020-06-21 12:48] LABS: % IRON SATURATION 8 % (15-50); IRON 21 ug/dL (65-175); TOTAL IRON BINDING CAPACITY 272 ug/dL (261-478); TRANSFERRIN 194 mg/dL (174-364)
[2020-06-21 20:00] VITALS: BP 132/48
[2020-06-21 20:24] LABS: CREATINE KINASE MB 2.6 ng/mL (0-5.0)
[2020-06-21] MEDS ORDERED: IRON SUCROSE 100 MG in SODIUM CHLORIDE 0.9% 100 ML 100 ML IV SCH (22:00)
[2020-06-21] MEDS ORDERED: ACETAMINOPHEN 325 MG TAB PO PRN (22:00)
[2020-06-21] MEDS ORDERED: ONDANSETRON HCL INJ 2MG/ML 2ML 2 MG/ML VIAL IV PRN (22:00)
[2020-06-21 22:11] LABS: HEMATOCRIT 18.2 % (38.2-49.6); HEMOGLOBIN 5.6 g/dL (14.0-18.0)
[2020-06-22] VITALS (8 sets, daily range): BP systolic 108–157; BP diastolic 48–72
[2020-06-22] MEDS: PANTOPRAZOL 40MG/SOD CHL 0.9% 50 ML IV SCH ×5 (02:45→22:45)
[2020-06-22] MEDS ORDERED: SODIUM CHLORIDE 0.9% 250ML 250 ML ONE (03:55)
[2020-06-22] MEDS: INSULIN LISPRO 100 UNIT/1 ML 3ML VIAL SQ SCH ×4 (07:30→21:00)
[2020-06-22] MEDS: CYANOCOBALAMIN INJ 1,000 MCG/ML VIAL IM SCH (09:19)
[2020-06-22] MEDS: IRON SUCROSE 100 MG in SODIUM CHLORIDE 0.9% 100 ML 100 ML IV SCH (09:55)
[2020-06-22 10:10] LABS: BASOPHILS # (AUTO) 0.1 (0.0-0.1); BASOPHILS % 0.4 % (0.0-1.0); EOSINOPHILS # (AUTO) 0.3 (0.0-0.4); HEMOGLOBIN 7.9 g/dL (14.0-18.0); LYMPHOCYTES % 6.6 % (18.0-39.1); MEAN CORPUSCULAR HEMOGLOBIN 26.6 pg (28-32); MEAN CORPUSCULAR HGB CONC 31.6 g/dL (31-35); MEAN CORPUSCULAR VOLUME 84.2 fL (81-99); MONOCYTES # (AUTO) 1.1 (0.2-0.8); MONOCYTES % 7.5 % (4.4-11.3); NEUTROPHILS # (AUTO) 12.6 (2.1-6.9); PLATELET COUNT 354 x10e3/uL (140-360); RED BLOOD COUNT 2.97 x10e6/uL (4.3-5.7)
[2020-06-22 10:26] LABS: ALBUMIN 2.6 g/dL (3.5-5.0); ALBUMIN/GLOBULIN RATIO 0.7 (0.8-2.0); ANION GAP 14.9 mmol/L (8-16); CALCIUM 7.6 mg/dL (8.4-10.2); CREATININE, SERUM 2.58 mg/dL (0.72-1.25); POTASSIUM 3.9 mmol/L (3.5-5.1)
[2020-06-22 10:44] LABS: INR 1.14; PROTHROMBIN TIME 15.3 seconds (11.9-14.5)
[2020-06-22 10:57] LABS: CREATINE KINASE MB 0.8 ng/mL (0-5.0)
[2020-06-22] MEDS ORDERED: FENTANYL CITRATE/PF 100MCG/2 ML INJ ONE (13:20)
[2020-06-22] MEDS ORDERED: MIDAZOLAM HCL 2 MG/2 ML VIAL ONE (13:20)
[2020-06-22] MEDS ORDERED: PROPOFOL IV EMULSION 10 MG/ML 20 ML VIAL ONE (13:47)
[2020-06-22] MEDS ORDERED: LIDOCAINE HCL 2% LOCAL INJ 5 ML SDV VIAL INJ ONE (13:47)
[2020-06-22] MEDS ORDERED: GLUCAGON FOR INJ 1 MG VIAL ONE (13:47)
[2020-06-22] MEDS: METOPROLOL TARTRATE 25 MG TAB PO SCH (17:00)
[2020-06-23] VITALS (7 sets, daily range): BP systolic 136–147; BP diastolic 51–59
[2020-06-23] MEDS: PANTOPRAZOL 40MG/SOD CHL 0.9% 50 ML IV SCH ×4 (03:45→23:00)
[2020-06-23] MEDS: DIPHENHYDRAMINE HCL INJ 50 MG/ML VIAL IV PRN ×4 (06:15→20:40)
[2020-06-23 06:32] LABS: BASOPHILS # (AUTO) 0.1 (0.0-0.1); BASOPHILS % 0.4 % (0.0-1.0); EOSINOPHILS # (AUTO) 0.5 (0.0-0.4); EOSINOPHILS % 3.2 % (0.0-6.0); HEMATOCRIT 25.1 % (38.2-49.6); HEMOGLOBIN 7.7 g/dL (14.0-18.0); LYMPHOCYTES # (AUTO) 1.1 (1.0-3.2); MEAN CORPUSCULAR HEMOGLOBIN 26.1 pg (28-32); MEAN CORPUSCULAR HGB CONC 30.7 g/dL (31-35); MEAN CORPUSCULAR VOLUME 85.1 fL (81-99); MONOCYTES # (AUTO) 1.1 (0.2-0.8); MONOCYTES % 6.9 % (4.4-11.3); NEUTROPHILS # (AUTO) 13.3 (2.1-6.9); PLATELET COUNT 372 x10e3/uL (140-360); RED BLOOD COUNT 2.95 x10e6/uL (4.3-5.7); RED CELL DISTRIBUTION WIDTH 18.1 % (11.7-14.4)
[2020-06-23 06:57] LABS: ALBUMIN 2.6 g/dL (3.5-5.0); ALBUMIN/GLOBULIN RATIO 0.7 (0.8-2.0); ANION GAP 13.7 mmol/L (8-16); CALCIUM 7.6 mg/dL (8.4-10.2); CHOL/HDL RATIO 7.6 (3.9-4.7); CREATININE, SERUM 2.27 mg/dL (0.72-1.25); POTASSIUM 3.7 mmol/L (3.5-5.1)
[2020-06-23 07:20] LABS: THYROID STIMULATING HORMONE 1.472 uIU/mL (0.350-4.940)
[2020-06-23] MEDS: INSULIN LISPRO 100 UNIT/1 ML 3ML VIAL SQ SCH ×4 (07:30→21:00)
[2020-06-23] MEDS ORDERED: SODIUM CHLORIDE 0.9% 250ML 250 ML ONE ×2 (09:42→09:55)
[2020-06-23] MEDS: CYANOCOBALAMIN INJ 1,000 MCG/ML VIAL IM SCH (09:45)
[2020-06-23] MEDS: METOPROLOL TARTRATE 25 MG TAB PO SCH ×2 (09:45→16:41)
[2020-06-23] MEDS: IRON SUCROSE 100 MG in SODIUM CHLORIDE 0.9% 100 ML 100 ML IV SCH (10:27)
[2020-06-23] MEDS: CEFTRIAXONE SOD 1 GM/NS 50 ML 50 ML IV SCH (12:00)
[2020-06-23] MEDS ORDERED: METHYLPREDNISOLONE SOD SUCC 40 MG/ML VIAL 1ML IV ONE (15:45)
[2020-06-24] VITALS (7 sets, daily range): BP systolic 121–140; BP diastolic 46–65
[2020-06-24] MEDS: DIPHENHYDRAMINE HCL INJ 50 MG/ML VIAL IV PRN ×4 (01:02→20:54)
[2020-06-24] MEDS: PANTOPRAZOL 40MG/SOD CHL 0.9% 50 ML IV SCH ×5 (03:10→20:49)
[2020-06-24 06:45] LABS: BASOPHILS % 0.1 % (0.0-1.0); EOSINOPHILS % 0.1 % (0.0-6.0); HEMATOCRIT 24.7 % (38.2-49.6); HEMOGLOBIN 7.6 g/dL (14.0-18.0); LYMPHOCYTES # (AUTO) 0.5 (1.0-3.2); LYMPHOCYTES % 4.9 % (18.0-39.1); MEAN CORPUSCULAR HEMOGLOBIN 26.2 pg (28-32); MEAN CORPUSCULAR HGB CONC 30.8 g/dL (31-35); MEAN CORPUSCULAR VOLUME 85.2 fL (81-99); MONOCYTES # (AUTO) 0.5 (0.2-0.8); MONOCYTES % 4.7 % (4.4-11.3); NEUTROPHILS # (AUTO) 9.3 (2.1-6.9); NEUTROPHILS % 89.7 % (38.7-80.0); PLATELET COUNT 322 x10e3/uL (140-360); RED CELL DISTRIBUTION WIDTH 18.4 % (11.7-14.4)
[2020-06-24] MEDS: INSULIN LISPRO 100 UNIT/1 ML 3ML VIAL SQ SCH ×4 (07:30→20:54)
[2020-06-24 07:31] LABS: ANION GAP 14.3 mmol/L (8-16); CALCIUM 7.8 mg/dL (8.4-10.2); CREATININE, SERUM 2.39 mg/dL (0.72-1.25); POTASSIUM 4.3 mmol/L (3.5-5.1)
[2020-06-24] MEDS: METOPROLOL TARTRATE 25 MG TAB PO SCH ×2 (09:00→17:16)
[2020-06-24] MEDS: CYANOCOBALAMIN INJ 1,000 MCG/ML VIAL IM SCH (09:00)
[2020-06-24] MEDS: IRON SUCROSE 100 MG in SODIUM CHLORIDE 0.9% 100 ML 100 ML IV SCH (09:49)
[2020-06-24] MEDS: CEFTRIAXONE SOD 1 GM/NS 50 ML 50 ML IV SCH (11:59)
[2020-06-24] MEDS ORDERED: MELATONIN 5 MG TABLET PO PRN (20:15)
[2020-06-25] VITALS: BP 133/53
[2020-06-25] MEDS: PANTOPRAZOL 40MG/SOD CHL 0.9% 50 ML IV SCH ×3 (03:15→12:00)
[2020-06-25 04:00] VITALS: BP 132/50
[2020-06-25 06:53] LABS: HEMATOCRIT 26.3 % (38.2-49.6)
[2020-06-25 07:10] LABS: ANION GAP 12.2 mmol/L (8-16); CALCIUM 7.5 mg/dL (8.4-10.2); CREATININE, SERUM 2.36 mg/dL (0.72-1.25); POTASSIUM 4.2 mmol/L (3.5-5.1)
[2020-06-25] MEDS: INSULIN LISPRO 100 UNIT/1 ML 3ML VIAL SQ SCH ×3 (07:30→16:30)
[2020-06-25 07:45] VITALS: BP 146/59
[2020-06-25 08:45] VITALS: BP 146/59
[2020-06-25] MEDS: DIPHENHYDRAMINE HCL INJ 50 MG/ML VIAL IV PRN ×2 (08:55→16:04)
[2020-06-25] MEDS: CIPROFLOXACIN 500 MG TAB PO SCH ×2 (09:27→17:01)
[2020-06-25] MEDS: CYANOCOBALAMIN INJ 1,000 MCG/ML VIAL IM SCH (09:27)
[2020-06-25] MEDS: METOPROLOL TARTRATE 25 MG TAB PO SCH ×2 (09:28→17:02)
[2020-06-25 13:04] VITALS: BP 127/59
[2020-06-25 17:51] VITALS: BP 135/51
== END 2020-06-25 17:42 | disposition home or self-care (01) | DRG 368 ==
LOC: ER 07:36 → ERHOLD 08:03 → IMCU 20:30 → MED/SURG3 06-22 15:44
PROVIDERS: ADMIT Internal Medicine; ATTEND Internal Medicine
PROC: 0DJ08ZZ Inspection of Upper Intestinal Tract, Via Natural or Artificial Opening Endoscopic (ICD-10-PCS; principal; 2020-06-21)
PROC: 30233N1 Transfusion of Nonautologous Red Blood Cells into Peripheral Vein, Percutaneous Approach (ICD-10-PCS; 2020-06-21)
DX: K22.6 Gastro-esophageal laceration-hemorrhage syndrome (principal); I21.A1 Myocardial infarction type 2; D62 Acute posthemorrhagic anemia; N17.9 Acute kidney failure, unspecified; E11.52 Type 2 diabetes mellitus with diabetic peripheral angiopathy with gangrene; I96 Gangrene, not elsewhere classified; N39.0 Urinary tract infection, site not specified; K22.11 Ulcer of esophagus with bleeding; K29.71 Gastritis, unspecified, with bleeding; K92.0 Hematemesis; N18.30 Chronic kidney disease, stage 3 unspecified; E11.22 Type 2 diabetes mellitus with diabetic chronic kidney disease; I12.9 Hypertensive chronic kidney disease with stage 1 through stage 4 chronic kidney disease, or unspecified chronic kidney disease; Z79.899 Other long term (current) drug therapy; I25.10 Atherosclerotic heart disease of native coronary artery without angina pectoris; Z89.422 Acquired absence of other left toe(s); Z20.822 Contact with and (suspected) exposure to COVID-19; L29.9 Pruritus, unspecified
CPT/HCPCS: 36415; 43235; 71045; 74176; 80048; 80053; 80061; 81001; 82550; 82553; 82607; 82746; 82948; 83540; 83605; 84443; 84466; 84484; 85014; 85018; 85025; 85045; 85610; 85730; 86850; 86900; 86920; 87040; 87086; 87186; 93005; 93306; 96361; 99251; 99285; J0696; J1200; J1610; J1756; J2001; J2250; J2405; J2920; J3010; J3420; J7030; J7050; J7121; P9016; U0002

== ENCOUNTER 2020-08-02 16:38 | Emergency (ER) | payer OTHER ==
[~2020-08-02] VITALS: Ht 193 cm; Wt 94.8 kg
== END 2020-08-02 19:00 | disposition home or self-care (01) ==
LOC: ER 17:11
DX: L29.9 Pruritus, unspecified (principal); I10 Essential (primary) hypertension; E11.9 Type 2 diabetes mellitus without complications
CPT/HCPCS: 99282

== ENCOUNTER 2020-10-05 21:29 | Inpatient (IN) | payer OTHER ==
[~2020-10-05] VITALS: Ht 193 cm; Wt 108.0 kg
[2020-10-05] MEDS ORDERED: AMIODARONE HCL 360MG 200 ML IV SCH (22:00)
[2020-10-05] MEDS ORDERED: AMIODARONE 900MG 500 ML IV ONE (22:00)
[2020-10-05] MEDS ORDERED: AMIODARONE HCL 150MG 100 ML IV ONE (22:00)
[2020-10-05] MEDS ORDERED: AMIODARONE HCL 150MG 100 ML ONE (22:01)
[2020-10-05 22:06] LABS: BASOPHILS # (AUTO) 0.1 (0.0-0.1); BASOPHILS % 0.4 % (0.0-1.0); EOSINOPHILS # (AUTO) 0.2 (0.0-0.4); EOSINOPHILS % 1.2 % (0.0-6.0); HEMATOCRIT 25.6 % (38.2-49.6); HEMOGLOBIN 7.5 g/dL (14.0-18.0); LYMPHOCYTES # (AUTO) 0.9 (1.0-3.2); LYMPHOCYTES % 7.3 % (18.0-39.1); MEAN CORPUSCULAR HEMOGLOBIN 22.2 pg (28-32); MEAN CORPUSCULAR HGB CONC 29.3 g/dL (31-35); MEAN CORPUSCULAR VOLUME 75.7 fL (81-99); MONOCYTES # (AUTO) 1.4 (0.2-0.8); MONOCYTES % 11.5 % (4.4-11.3); NEUTROPHILS # (AUTO) 9.7 (2.1-6.9); NEUTROPHILS % 79.2 % (38.7-80.0); PLATELET COUNT 473 x10e3/uL (140-360); RED BLOOD COUNT 3.38 x10e6/uL (4.3-5.7); RED CELL DISTRIBUTION WIDTH 19.1 % (11.7-14.4)
[2020-10-05 22:20] LABS: INR 0.97; PROTHROMBIN TIME 13.5 seconds (11.9-14.5)
[2020-10-05 22:21] LABS: PARTIAL THROMBOPLASTIN TIME 28.9 seconds (23.8-35.5)
[2020-10-05 22:22] LABS: ALBUMIN 2.5 g/dL (3.5-5.0); ALBUMIN/GLOBULIN RATIO 0.6 (0.8-2.0); ANION GAP 15.6 mmol/L (8-16); CALCIUM 8.4 mg/dL (8.4-10.2); CREATININE, SERUM 2.33 mg/dL (0.72-1.25); POTASSIUM 4.6 mmol/L (3.5-5.1)
[2020-10-05] MEDS ORDERED: DEXTROSE 50% SYRINGE 50 ML IV STA ×2 (22:25→23:53)
[2020-10-05 22:29] LABS: CREATINE KINASE MB 3.1 ng/mL (0-5.0)
[2020-10-05 22:30] LABS: B-TYPE NATRIURETIC PEPTIDE2 2906.8 pg/mL (0-100)
[2020-10-05] MEDS ORDERED: DEXTROSE 50% SYRINGE 50 ML IV ONE (23:58)
[2020-10-06] VITALS (21 sets, daily range): BP systolic 92–152; BP diastolic 43–94
[2020-10-06] MEDS ORDERED: AMIODARONE HCL 360MG 200 ML IV SCH
[2020-10-06] MEDS ORDERED: ASPIRIN 81 MG CHEW TAB PO STA (00:12)
[2020-10-06] MEDS ORDERED: FUROSEMIDE INJ 10 MG/ML 4 ML VIAL IV SCH (00:15)
[2020-10-06] MEDS: SODIUM CHLORIDE FLUSH 10 ML SYR INJ PRN (00:29)
[2020-10-06] MEDS: DEXTROSE 50% SYRINGE 50 ML IV PRN ×4 (00:29→06:21)
[2020-10-06] MEDS ORDERED: ASPIRIN 81 MG CHEW TAB PO ONE (00:45)
[2020-10-06 01:20] LABS: CLARITY,URINE SL CLOUDY (CLEAR); COLOR,URINE YELLOW (YELLOW); KETONES,URINE NEGATIVE (NEGATIVE); LEUKOCYTE ESTERASE ,URINE TRACE (NEGATIVE); NITRITE,URINE NEGATIVE (NEGATIVE); PROTEIN,URINE DIPSTICK 2+ (NEGATIVE); URINE UROBILINOGEN 0.2 mg/dL (0.2 - 1)
[2020-10-06 01:26] LABS: BACTERIA,URINE MODERATE /HPF; EPITHELIAL CELLS,URINE MODERATE /LPF; RBC,URINE 0-5 /HPF (0-5)
[2020-10-06 07:02] LABS: BASOPHILS # (AUTO) 0.1 (0.0-0.1); BASOPHILS % 0.4 % (0.0-1.0); EOSINOPHILS # (AUTO) 0.1 (0.0-0.4); EOSINOPHILS % 1.1 % (0.0-6.0); HEMATOCRIT 24.9 % (38.2-49.6); HEMOGLOBIN 7.2 g/dL (14.0-18.0); LYMPHOCYTES # (AUTO) 0.7 (1.0-3.2); LYMPHOCYTES % 5.7 % (18.0-39.1); MEAN CORPUSCULAR HGB CONC 28.9 g/dL (31-35); MEAN CORPUSCULAR VOLUME 75.9 fL (81-99); MONOCYTES # (AUTO) 1.4 (0.2-0.8); MONOCYTES % 11.4 % (4.4-11.3); NEUTROPHILS # (AUTO) 9.9 (2.1-6.9); NEUTROPHILS % 80.9 % (38.7-80.0); PLATELET COUNT 469 x10e3/uL (140-360); RED BLOOD COUNT 3.28 x10e6/uL (4.3-5.7); RED CELL DISTRIBUTION WIDTH 19.2 % (11.7-14.4)
[2020-10-06 07:10] LABS: ANION GAP 14.7 mmol/L (8-16); CREATININE, SERUM 2.33 mg/dL (0.72-1.25); POTASSIUM 4.7 mmol/L (3.5-5.1)
[2020-10-06 07:30] LABS: CREATINE KINASE MB 3.3 ng/mL (0-5.0)
[2020-10-06] MEDS ORDERED: ACETAMINOPHEN/CODEINE 300MG - 30MG TAB PO PRN (08:15)
[2020-10-06] MEDS ORDERED: CLOPIDOGREL BISULFATE 75 MG TAB PO SCH (09:00)
[2020-10-06] MEDS ORDERED: GLIPIZIDE ER5 MG PO (13:05)
[2020-10-06] MEDS ORDERED: FLOMAX0.4 MG PO (13:05)
[2020-10-06] MEDS ORDERED: METFORMIN HCL500 M1 PO (13:06)
[2020-10-06] MEDS ORDERED: DOXEPIN HCL25 MG PO (13:07)
[2020-10-06] MEDS ORDERED: LOSARTAN-HCTZ1 EAC1 PO (13:07)
[2020-10-06] MEDS ORDERED: TRAZODONE HCL100 MG PO (13:08)
[2020-10-06] MEDS ORDERED: NEURONTIN100 MG PO (13:08)
[2020-10-06] MEDS ORDERED: DEXTROSE 50% SYRINGE 50 ML IV PRN (14:00)
[2020-10-06] MEDS ORDERED: CEFTRIAXONE SOD 1 GM VIAL IV SCH (15:30)
[2020-10-06] MEDS: FAMOTIDINE 20 MG TAB PO SCH (15:54)
[2020-10-06] MEDS ORDERED: CEFTRIAXONE SOD 1 GM in SODIUM CHLORIDE 0.9% 50ML 50 ML IV SCH (16:00)
[2020-10-06] MEDS: AMIODARONE HCL 200 MG TAB PO SCH (16:05)
[2020-10-06] MEDS: INSULIN REGULAR, HUMAN 100 UNIT/1 ML 3ML VIAL SQ SCH ×2 (16:19→20:58)
[2020-10-06] MEDS ORDERED: ONDANSETRON HCL INJ 2MG/ML 2ML 2 MG/ML VIAL IV PRN (17:00)
[2020-10-06 17:35] LABS: CREATINE KINASE MB 1.5 ng/mL (0-5.0)
[2020-10-06 17:58] LABS: % IRON SATURATION 3 % (15-50); IRON 9 ug/dL (65-175); TOTAL IRON BINDING CAPACITY 293 ug/dL (261-478); TRANSFERRIN 209 mg/dL (174-364)
[2020-10-06] MEDS ORDERED: ZOLPIDEM TARTRATE 5 MG TAB PO PRN (21:00)
[2020-10-07] VITALS (26 sets, daily range): BP systolic 106–156; BP diastolic 36–137
[2020-10-07 04:43] LABS: BASOPHILS # (AUTO) 0.1 (0.0-0.1); BASOPHILS % 0.4 % (0.0-1.0); EOSINOPHILS # (AUTO) 0.1 (0.0-0.4); EOSINOPHILS % 0.9 % (0.0-6.0); HEMOGLOBIN 7.4 g/dL (14.0-18.0); LYMPHOCYTES # (AUTO) 0.7 (1.0-3.2); LYMPHOCYTES % 5.1 % (18.0-39.1); MEAN CORPUSCULAR HEMOGLOBIN 22.1 pg (28-32); MEAN CORPUSCULAR HGB CONC 29.6 g/dL (31-35); MEAN CORPUSCULAR VOLUME 74.6 fL (81-99); MONOCYTES # (AUTO) 1.3 (0.2-0.8); MONOCYTES % 9.4 % (4.4-11.3); NEUTROPHILS # (AUTO) 11.5 (2.1-6.9); NEUTROPHILS % 83.8 % (38.7-80.0); PLATELET COUNT 517 x10e3/uL (140-360); RED BLOOD COUNT 3.35 x10e6/uL (4.3-5.7); RED CELL DISTRIBUTION WIDTH 18.7 % (11.7-14.4)
[2020-10-07 05:08] LABS: ALBUMIN 2.5 g/dL (3.5-5.0); ALBUMIN/GLOBULIN RATIO 0.6 (0.8-2.0); ANION GAP 17.9 mmol/L (8-16); CALCIUM 7.6 mg/dL (8.4-10.2); CREATININE, SERUM 2.86 mg/dL (0.72-1.25); POTASSIUM 5.9 mmol/L (3.5-5.1)
[2020-10-07] MEDS: INSULIN REGULAR, HUMAN 100 UNIT/1 ML 3ML VIAL SQ SCH ×4 (07:30→20:47)
[2020-10-07] MEDS: FAMOTIDINE 20 MG TAB PO SCH ×2 (08:01→18:13)
[2020-10-07] MEDS: AMIODARONE HCL 200 MG TAB PO SCH ×2 (08:24→18:13)
[2020-10-07] MEDS: METOPROLOL SUCCINATE 25 MG TAB XL PO SCH (08:24)
[2020-10-07] MEDS ORDERED: FUROSEMIDE INJ 10 MG/ML 4 ML VIAL IV SCH ×2 (09:00→14:00)
[2020-10-07] MEDS ORDERED: SOD POLYSTYRENE SULFONATE SUSP 15 GM/60 ML BTL PO ONE ×2 (10:00→10:35)
[2020-10-07] MEDS ORDERED: LACTULOSE SYRUP 20 GM/30 ML UDC PO ONE (10:35)
[2020-10-07 14:18] LABS: CLARITY,URINE HAZY (CLEAR); COLOR,URINE YELLOW (YELLOW); KETONES,URINE NEGATIVE (NEGATIVE); LEUKOCYTE ESTERASE ,URINE MODERATE (NEGATIVE); NITRITE,URINE NEGATIVE (NEGATIVE); PROTEIN,URINE DIPSTICK 2+ (NEGATIVE); URINE UROBILINOGEN 0.2 mg/dL (0.2 - 1)
[2020-10-07 14:27] LABS: ANION GAP 18.8 mmol/L (8-16); CALCIUM 7.7 mg/dL (8.4-10.2); CREATININE, SERUM 3.11 mg/dL (0.72-1.25); POTASSIUM 4.8 mmol/L (3.5-5.1)
[2020-10-07 14:31] LABS: BACTERIA,URINE MODERATE /HPF; EPITHELIAL CELLS,URINE MANY /LPF
[2020-10-07 14:59] LABS: CREATININE,URINE RANDOM 75.16 mg/dL (63-166)
[2020-10-07] MEDS: AMPICILLIN SOD/SULBACTAM 1.5GM 50 ML IV SCH (18:14)
[2020-10-08] VITALS (23 sets, daily range): BP systolic 109–163; BP diastolic 49–119
[2020-10-08] MEDS: AMPICILLIN SOD/SULBACTAM 1.5GM 50 ML IV SCH ×4 (00:02→18:40)
[2020-10-08] MEDS: FUROSEMIDE INJ 10 MG/ML 4 ML VIAL IV SCH ×3 (02:12→18:37)
[2020-10-08 06:09] LABS: BASOPHILS # (AUTO) 0.1 (0.0-0.1); BASOPHILS % 0.4 % (0.0-1.0); EOSINOPHILS # (AUTO) 0.1 (0.0-0.4); EOSINOPHILS % 0.7 % (0.0-6.0); HEMATOCRIT 26.1 % (38.2-49.6); HEMOGLOBIN 7.7 g/dL (14.0-18.0); LYMPHOCYTES # (AUTO) 0.7 (1.0-3.2); MEAN CORPUSCULAR HEMOGLOBIN 21.7 pg (28-32); MEAN CORPUSCULAR HGB CONC 29.5 g/dL (31-35); MEAN CORPUSCULAR VOLUME 73.5 fL (81-99); MONOCYTES # (AUTO) 1.3 (0.2-0.8); NEUTROPHILS # (AUTO) 11.8 (2.1-6.9); NEUTROPHILS % 84.2 % (38.7-80.0); PLATELET COUNT 564 x10e3/uL (140-360); RED BLOOD COUNT 3.55 x10e6/uL (4.3-5.7); RED CELL DISTRIBUTION WIDTH 18.9 % (11.7-14.4)
[2020-10-08 06:29] LABS: ALBUMIN 2.7 g/dL (3.5-5.0); ALBUMIN/GLOBULIN RATIO 0.6 (0.8-2.0); ANION GAP 20.2 mmol/L (8-16); CALCIUM 7.7 mg/dL (8.4-10.2); CREATININE, SERUM 2.98 mg/dL (0.72-1.25); POTASSIUM 4.2 mmol/L (3.5-5.1)
[2020-10-08] MEDS: INSULIN REGULAR, HUMAN 100 UNIT/1 ML 3ML VIAL SQ SCH ×4 (07:30→21:00)
[2020-10-08] MEDS: SODIUM CHLORIDE FLUSH 10 ML SYR INJ PRN (08:00)
[2020-10-08] MEDS: FAMOTIDINE 20 MG TAB PO SCH ×2 (09:44→17:25)
[2020-10-08] MEDS: AMIODARONE HCL 200 MG TAB PO SCH ×2 (09:44→17:25)
[2020-10-08] MEDS: METOPROLOL SUCCINATE 25 MG TAB XL PO SCH (09:45)
[2020-10-08] MEDS: METOPROLOL TARTRATE 25 MG TAB PO SCH (18:39)
[2020-10-09] VITALS (8 sets, daily range): BP systolic 116–151; BP diastolic 51–77
[2020-10-09] MEDS ORDERED: SODIUM CHLORIDE 0.9% 250ML 250 ML ONE (00:06)
[2020-10-09] MEDS: AMPICILLIN SOD/SULBACTAM 1.5GM 50 ML IV SCH ×4 (00:16→17:35)
[2020-10-09] MEDS: METOPROLOL TARTRATE 25 MG TAB PO SCH ×3 (01:06→17:23)
[2020-10-09] MEDS: FUROSEMIDE INJ 10 MG/ML 4 ML VIAL IV SCH ×3 (01:06→17:22)
[2020-10-09 06:51] LABS: BASOPHILS # (AUTO) 0.1 (0.0-0.1); BASOPHILS % 0.4 % (0.0-1.0); EOSINOPHILS % 0.2 % (0.0-6.0); HEMATOCRIT 26.7 % (38.2-49.6); LYMPHOCYTES # (AUTO) 0.7 (1.0-3.2); LYMPHOCYTES % 5.1 % (18.0-39.1); MEAN CORPUSCULAR HEMOGLOBIN 21.9 pg (28-32); MEAN CORPUSCULAR VOLUME 73.2 fL (81-99); MONOCYTES # (AUTO) 1.2 (0.2-0.8); NEUTROPHILS # (AUTO) 10.9 (2.1-6.9); NEUTROPHILS % 84.8 % (38.7-80.0); PLATELET COUNT 610 x10e3/uL (140-360); RED BLOOD COUNT 3.65 x10e6/uL (4.3-5.7); RED CELL DISTRIBUTION WIDTH 18.7 % (11.7-14.4)
[2020-10-09 07:18] LABS: ALBUMIN 2.7 g/dL (3.5-5.0); ALBUMIN/GLOBULIN RATIO 0.6 (0.8-2.0); CALCIUM 8.2 mg/dL (8.4-10.2); CREATININE, SERUM 3.17 mg/dL (0.72-1.25)
[2020-10-09] MEDS: INSULIN REGULAR, HUMAN 100 UNIT/1 ML 3ML VIAL SQ SCH ×4 (07:30→20:14)
[2020-10-09] MEDS: FAMOTIDINE 20 MG TAB PO SCH ×2 (07:55→17:22)
[2020-10-09] MEDS: AMIODARONE HCL 200 MG TAB PO SCH ×2 (07:55→17:22)
[2020-10-10] VITALS (7 sets, daily range): BP systolic 116–137; BP diastolic 48–61
[2020-10-10] MEDS: AMPICILLIN SOD/SULBACTAM 1.5GM 50 ML IV SCH ×4 (00:30→18:10)
[2020-10-10] MEDS: METOPROLOL TARTRATE 25 MG TAB PO SCH ×3 (01:58→18:10)
[2020-10-10] MEDS: FUROSEMIDE INJ 10 MG/ML 4 ML VIAL IV SCH (01:58)
[2020-10-10 05:13] LABS: BASOPHILS % 0.4 % (0.0-1.0); EOSINOPHILS # (AUTO) 0.1 (0.0-0.4); EOSINOPHILS % 0.5 % (0.0-6.0); HEMATOCRIT 23.7 % (38.2-49.6); HEMOGLOBIN 7.1 g/dL (14.0-18.0); LYMPHOCYTES # (AUTO) 0.5 (1.0-3.2); LYMPHOCYTES % 4.3 % (18.0-39.1); MEAN CORPUSCULAR HEMOGLOBIN 21.6 pg (28-32); MEAN CORPUSCULAR VOLUME 72.3 fL (81-99); MONOCYTES # (AUTO) 1.1 (0.2-0.8); MONOCYTES % 10.7 % (4.4-11.3); NEUTROPHILS # (AUTO) 8.7 (2.1-6.9); NEUTROPHILS % 82.7 % (38.7-80.0); PLATELET COUNT 488 x10e3/uL (140-360); RED BLOOD COUNT 3.28 x10e6/uL (4.3-5.7); RED CELL DISTRIBUTION WIDTH 18.6 % (11.7-14.4)
[2020-10-10 05:31] LABS: ALBUMIN 2.4 g/dL (3.5-5.0); ALBUMIN/GLOBULIN RATIO 0.6 (0.8-2.0); ANION GAP 17.9 mmol/L (8-16); CALCIUM 7.4 mg/dL (8.4-10.2); CREATININE, SERUM 3.32 mg/dL (0.72-1.25); POTASSIUM 3.9 mmol/L (3.5-5.1)
[2020-10-10] MEDS: INSULIN REGULAR, HUMAN 100 UNIT/1 ML 3ML VIAL SQ SCH ×4 (07:30→21:00)
[2020-10-10] MEDS: FAMOTIDINE 20 MG TAB PO SCH ×2 (07:30→16:30)
[2020-10-10] MEDS: IRON SUCROSE 100 MG in SODIUM CHLORIDE 0.9% 100 ML 100 ML IV SCH (09:45)
[2020-10-10] MEDS ORDERED: FENTANYL CITRATE/PF 100MCG/2 ML INJ ONE (12:00)
[2020-10-10] MEDS ORDERED: MIDAZOLAM HCL 2 MG/2 ML VIAL ONE (12:00)
[2020-10-10] MEDS: AMIODARONE HCL 200 MG TAB PO SCH (14:21)
[2020-10-10] MEDS ORDERED: SODIUM CHLORIDE 0.9% 250ML 250 ML IV ONE (15:45)
[2020-10-10] MEDS: BUMETANIDE 1 MG TAB PO SCH (17:40)
[2020-10-10] MEDS ORDERED: FUROSEMIDE 40 MG TAB PO SCH (18:00)
[2020-10-10] MEDS ORDERED: SODIUM CHLORIDE 0.9% 250ML 250 ML ONE ×2 (22:10→22:41)
[2020-10-11] VITALS: BP 137/65
[2020-10-11] MEDS ORDERED: SODIUM CHLORIDE 0.9% 250ML 250 ML ONE (00:06)
[2020-10-11 01:30] VITALS: BP 143/61
[2020-10-11] MEDS: AMPICILLIN SOD/SULBACTAM 1.5GM 50 ML IV SCH (01:30)
[2020-10-11] MEDS: METOPROLOL TARTRATE 25 MG TAB PO SCH ×2 (01:30→09:36)
[2020-10-11 04:00] VITALS: BP 124/60
[2020-10-11 05:24] LABS: BASOPHILS # (AUTO) 0.1 (0.0-0.1); BASOPHILS % 0.5 % (0.0-1.0); EOSINOPHILS # (AUTO) 0.1 (0.0-0.4); EOSINOPHILS % 0.5 % (0.0-6.0); HEMATOCRIT 26.3 % (38.2-49.6); LYMPHOCYTES # (AUTO) 0.6 (1.0-3.2); LYMPHOCYTES % 5.3 % (18.0-39.1); MEAN CORPUSCULAR HEMOGLOBIN 22.3 pg (28-32); MEAN CORPUSCULAR HGB CONC 30.4 g/dL (31-35); MEAN CORPUSCULAR VOLUME 73.3 fL (81-99); MONOCYTES # (AUTO) 1.2 (0.2-0.8); MONOCYTES % 11.3 % (4.4-11.3); NEUTROPHILS # (AUTO) 8.9 (2.1-6.9); NEUTROPHILS % 81.8 % (38.7-80.0); PLATELET COUNT 479 x10e3/uL (140-360); RED BLOOD COUNT 3.59 x10e6/uL (4.3-5.7); RED CELL DISTRIBUTION WIDTH 18.9 % (11.7-14.4)
[2020-10-11 06:07] LABS: ANION GAP 20.2 mmol/L (8-16); CALCIUM 7.4 mg/dL (8.4-10.2); CREATININE, SERUM 3.37 mg/dL (0.72-1.25); POTASSIUM 4.2 mmol/L (3.5-5.1)
[2020-10-11] MEDS: INSULIN REGULAR, HUMAN 100 UNIT/1 ML 3ML VIAL SQ SCH ×2 (07:30→11:30)
[2020-10-11 07:38] VITALS: BP 129/61
[2020-10-11] MEDS ORDERED: AMPICILLIN SOD/SULBACTAM 1.5GM 50 ML IV SCH (08:00)
[2020-10-11] MEDS: BUMETANIDE 1 MG TAB PO SCH (08:03)
[2020-10-11] MEDS: FAMOTIDINE 20 MG TAB PO SCH (08:03)
[2020-10-11] MEDS: AMIODARONE HCL 200 MG TAB PO SCH (08:03)
[2020-10-11 08:24] VITALS: BP 129/61
[2020-10-11] MEDS ORDERED: METOLAZONE 5 MG TAB PO SCH (09:00)
[2020-10-11] MEDS: IRON SUCROSE 100 MG in SODIUM CHLORIDE 0.9% 100 ML 100 ML IV SCH (09:34)
[2020-10-11 11:39] VITALS: BP 129/63
[2020-10-11] MEDS ORDERED: METOLAZONE5 MG PO (14:24)
[2020-10-11] MEDS ORDERED: AMIODARONE HCL200 MG PO (14:24)
[2020-10-11] MEDS ORDERED: BUMETANIDE1 MG PO (14:24)
[2020-10-11] MEDS ORDERED: FAMOTIDINE20 MG PO (14:24)
[2020-10-11] MEDS ORDERED: LOPRESSOR25 MG PO (14:24)
[2020-10-12] MEDS ORDERED: BUMETANIDE 1 MG TAB PO SCH (09:00)
== END 2020-10-11 16:00 | disposition home or self-care (01) | DRG 280 ==
LOC: ER 21:59 → ERHOLD 10-06 00:37 → ICU 10-06 01:35 → MED/SURG3 10-08 23:37
PROVIDERS: ADMIT Internal Medicine; ATTEND Internal Medicine
PROC: 0FB23ZX Excision of Left Lobe Liver, Percutaneous Approach, Diagnostic (ICD-10-PCS; principal; 2020-10-10)
PROC: 30233N1 Transfusion of Nonautologous Red Blood Cells into Peripheral Vein, Percutaneous Approach (ICD-10-PCS; 2020-10-10)
DX: I13.0 Hypertensive heart and chronic kidney disease with heart failure and stage 1 through stage 4 chronic kidney disease, or unspecified chronic kidney disease (principal); I50.33 Acute on chronic diastolic (congestive) heart failure; I21.A1 Myocardial infarction type 2; N17.0 Acute kidney failure with tubular necrosis; N18.4 Chronic kidney disease, stage 4 (severe); L97.518 Non-pressure chronic ulcer of other part of right foot with other specified severity; E11.22 Type 2 diabetes mellitus with diabetic chronic kidney disease; Z79.899 Other long term (current) drug therapy; I25.10 Atherosclerotic heart disease of native coronary artery without angina pectoris; E11.51 Type 2 diabetes mellitus with diabetic peripheral angiopathy without gangrene; N43.3 Hydrocele, unspecified; R16.0 Hepatomegaly, not elsewhere classified; D63.1 Anemia in chronic kidney disease; L98.499 Non-pressure chronic ulcer of skin of other sites with unspecified severity; I70.25 Atherosclerosis of native arteries of other extremities with ulceration; E11.621 Type 2 diabetes mellitus with foot ulcer; E87.5 Hyperkalemia; Z89.612 Acquired absence of left leg above knee; Z89.611 Acquired absence of right leg above knee; N40.1 Benign prostatic hyperplasia with lower urinary tract symptoms; R33.8 Other retention of urine; I48.91 Unspecified atrial fibrillation; Z79.01 Long term (current) use of anticoagulants; Z20.822 Contact with and (suspected) exposure to COVID-19
CPT/HCPCS: 36415; 47000; 51700; 71045; 71250; 74176; 74470; 76770; 76942; 80048; 80053; 81001; 82105; 82378; 82550; 82553; 82570; 82607; 82746; 82948; 83540; 83605; 83880; 84300; 84466; 84484; 84550; 85025; 85610; 85730; 86850; 86900; 86920; 87040; 87086; 87186; 88307; 93005; 93306; 97139; 99251; 99285; J0295; J0696; J1756; J1817; J1940; J2250; J2405; J3010; J7050; J7799; P9016; U0002

== ENCOUNTER 2020-10-23 23:34 | Inpatient (IN) | payer OTHER ==
[~2020-10-23] VITALS: Ht 193 cm; Wt 108.0 kg
[~2020-10-23 23:34] MED LIST changes: +AMIODARONE HCL200 MG PO; +BUMETANIDE1 MG PO; +DOXEPIN HCL25 MG PO; +FAMOTIDINE20 MG PO; +GLIPIZIDE ER5 MG PO; +LOPRESSOR25 MG PO; +METFORMIN HCL500 M1 PO; +METOLAZONE5 MG PO; +NEURONTIN100 MG PO; +TRAZODONE HCL100 MG PO
[2020-10-24] VITALS (8 sets, daily range): BP systolic 108–149; BP diastolic 54–88
[2020-10-24] MEDS ORDERED: ONDANSETRON HCL INJ 2MG/ML 2ML 2 MG/ML VIAL IV STA (01:03)
[2020-10-24] MEDS ORDERED: HYDROMORPHONE 1MG/1ML INJ IV STA (01:03)
[2020-10-24 01:05] LABS: BASOPHILS % 0.1 % (0.0-1.0); HEMATOCRIT 31.6 % (38.2-49.6); HEMOGLOBIN 9.2 g/dL (14.0-18.0); LYMPHOCYTES # (AUTO) 0.4 (1.0-3.2); LYMPHOCYTES % 3.5 % (18.0-39.1); MEAN CORPUSCULAR HGB CONC 29.1 g/dL (31-35); MEAN CORPUSCULAR VOLUME 75.4 fL (81-99); MONOCYTES % 8.5 % (4.4-11.3); NEUTROPHILS # (AUTO) 9.7 (2.1-6.9); NEUTROPHILS % 87.5 % (38.7-80.0); PLATELET COUNT 623 x10e3/uL (140-360); RED BLOOD COUNT 4.19 x10e6/uL (4.3-5.7); RED CELL DISTRIBUTION WIDTH 22.1 % (11.7-14.4)
[2020-10-24] MEDS ORDERED: HYDROMORPHONE 1MG/1ML INJ ONE (01:25)
[2020-10-24 01:37] LABS: INR 1.14; PROTHROMBIN TIME 15.3 seconds (11.9-14.5)
[2020-10-24 01:46] LABS: ALANINE AMINOTRANSFERASE 54 IU/L (0-55); ALBUMIN 2.8 g/dL (3.5-5.0); ALBUMIN/GLOBULIN RATIO 0.6 (0.8-2.0); ALKALINE PHOSPHATASE 126 IU/L (40-150); BLOOD UREA NITROGEN 97 mg/dL (7-26); BUN/CREATININE RATIO 30 (6-25); CALCIUM 8.2 mg/dL (8.4-10.2); CARBON DIOXIDE 21 mmol/L (22-29); CHLORIDE 98 mmol/L (98-107); CREATININE, SERUM 3.23 mg/dL (0.72-1.25); EST GLOMERULAR FILTRATION RATE 19 ML/MIN (60-); GLUCOSE 139 mg/dL (74-118); SODIUM 137 mmol/L (136-145)
[2020-10-24 01:48] LABS: CREATINE KINASE MB 2.8 ng/mL (0-5.0)
[2020-10-24 02:17] LABS: LIPASE > 1200 U/L (8-78)
[2020-10-24] MEDS ORDERED: SODIUM CHLORIDE 0.9% 1000ML 1,000 ML IV SCH (02:30)
[2020-10-24] MEDS ORDERED: DIPHENHYDRAMINE HCL INJ 50 MG/ML VIAL IV PRN (05:15)
[2020-10-24] MEDS ORDERED: PIPERACILLIN/TAZOBACTAM 2.25 GM in SODIUM CHLORIDE 0.9% 50ML 50 ML IV SCH (06:00)
[2020-10-24] MEDS ORDERED: PIPERACILLIN/TAZOBACTAM 3.375 GM in SODIUM CHLORIDE 0.9% 50ML 50 ML IV SCH (06:00)
[2020-10-24] MEDS: PIPERACILLIN/TAZOBACTAM 2.25 GM in SODIUM CHLORIDE 0.9% 50ML 50 ML IV SCH ×4 (06:31→23:48)
[2020-10-24] MEDS: ONDANSETRON HCL INJ 2MG/ML 2ML 2 MG/ML VIAL IV PRN (07:40)
[2020-10-24] MEDS: HYDROMORPHONE 1MG/1ML INJ IV PRN ×3 (07:40→16:16)
[2020-10-24] MEDS: DEXTROSE 5%/0.9% SOD CHL 1,000 ML IV SCH ×2 (08:15→20:01)
[2020-10-24 09:07] LABS: CREATINE KINASE MB 3.4 ng/mL (0-5.0)
[2020-10-24] MEDS ORDERED: DEXTROSE 50% SYRINGE 50 ML IV ONE (09:45)
[2020-10-24 10:49] LABS: CLARITY,URINE SL CLOUDY (CLEAR); COLOR,URINE YELLOW (YELLOW); KETONES,URINE NEGATIVE (NEGATIVE); LEUKOCYTE ESTERASE ,URINE MODERATE (NEGATIVE); NITRITE,URINE NEGATIVE (NEGATIVE); PROTEIN,URINE DIPSTICK 2+ (NEGATIVE); URINE UROBILINOGEN 0.2 mg/dL (0.2 - 1)
[2020-10-24 11:02] LABS: BACTERIA,URINE MODERATE /HPF; EPITHELIAL CELLS,URINE MODERATE /LPF; MUCUS,URINE FEW (RARE); WBC,URINE (MAN) 21-50 /HPF (0-5)
[2020-10-24] MEDS: FAMOTIDINE 20 MG/2 ML VIAL IV SCH (11:41)
[2020-10-24] MEDS: DEXTROSE 50% SYRINGE 50 ML IV PRN ×2 (16:17→19:38)
[2020-10-24 17:09] LABS: CREATINE KINASE MB 2.8 ng/mL (0-5.0)
[2020-10-25] VITALS (8 sets, daily range): BP systolic 91–137; BP diastolic 46–79
[2020-10-25] MEDS: HYDROMORPHONE 1MG/1ML INJ IV PRN ×5 (01:30→19:44)
[2020-10-25 04:54] LABS: BASOPHILS % 0.1 % (0.0-1.0); EOSINOPHILS % 0.1 % (0.0-6.0); HEMATOCRIT 30.1 % (38.2-49.6); HEMOGLOBIN 8.8 g/dL (14.0-18.0); LYMPHOCYTES # (AUTO) 0.3 (1.0-3.2); MEAN CORPUSCULAR HGB CONC 29.2 g/dL (31-35); MEAN CORPUSCULAR VOLUME 75.3 fL (81-99); MONOCYTES # (AUTO) 1.3 (0.2-0.8); MONOCYTES % 8.1 % (4.4-11.3); NEUTROPHILS # (AUTO) 14.3 (2.1-6.9); NEUTROPHILS % 89.2 % (38.7-80.0); PLATELET COUNT 537 x10e3/uL (140-360); RED CELL DISTRIBUTION WIDTH 21.8 % (11.7-14.4)
[2020-10-25 05:28] LABS: ALBUMIN 2.4 g/dL (3.5-5.0); ALBUMIN/GLOBULIN RATIO 0.6 (0.8-2.0); ANION GAP 20.9 mmol/L (8-16); CALCIUM 7.4 mg/dL (8.4-10.2); CREATININE, SERUM 3.46 mg/dL (0.72-1.25); POTASSIUM 4.9 mmol/L (3.5-5.1)
[2020-10-25] MEDS: DEXTROSE 50% SYRINGE 50 ML IV PRN ×3 (05:45→21:13)
[2020-10-25] MEDS: PIPERACILLIN/TAZOBACTAM 2.25 GM in SODIUM CHLORIDE 0.9% 50ML 50 ML IV SCH ×2 (06:14→12:10)
[2020-10-25] MEDS: DEXTROSE 5%/0.9% SOD CHL 1,000 ML IV SCH (06:14)
[2020-10-25] MEDS ORDERED: DILTIAZEM HCL 5 MG/ML 5 ML VIAL IV ONE (07:45)
[2020-10-25] MEDS: FAMOTIDINE 20 MG/2 ML VIAL IV SCH (08:26)
[2020-10-25] MEDS ORDERED: METOPROLOL TARTRATE INJ 1 MG/ML VIAL IV PRN (11:15)
[2020-10-25] MEDS: METOPROLOL TARTRATE 25 MG TAB PO SCH ×2 (14:00→21:13)
[2020-10-25] MEDS: ONDANSETRON HCL INJ 2MG/ML 2ML 2 MG/ML VIAL IV PRN (19:43)
[2020-10-26 00:04] VITALS: BP 110/63
[2020-10-26] MEDS: ONDANSETRON HCL INJ 2MG/ML 2ML 2 MG/ML VIAL IV PRN (01:44)
[2020-10-26] MEDS: HYDROMORPHONE 1MG/1ML INJ IV PRN (01:44)
[2020-10-26 04:43] VITALS: BP 87/49
[2020-10-26] MEDS: DEXTROSE 50% SYRINGE 50 ML IV PRN (05:34)
[2020-10-26] MEDS: METOPROLOL TARTRATE 25 MG TAB PO SCH ×2 (06:00→13:04)
[2020-10-26 06:37] VITALS: BP 117/53
[2020-10-26 08:30] VITALS: BP 117/53
[2020-10-26 08:31] VITALS: BP 137/65
[2020-10-26 13:01] VITALS: BP 126/53
== END 2020-10-26 15:54 | disposition hospice, home (50) | DRG 439 ==
LOC: ER 23:56 → ERHOLD 10-24 03:17 → MED/SURG2 10-24 03:44
PROVIDERS: ADMIT Internal Medicine; ATTEND Internal Medicine
DX: K85.90 Acute pancreatitis without necrosis or infection, unspecified (principal); C22.0 Liver cell carcinoma; R18.8 Other ascites; I13.0 Hypertensive heart and chronic kidney disease with heart failure and stage 1 through stage 4 chronic kidney disease, or unspecified chronic kidney disease; N18.4 Chronic kidney disease, stage 4 (severe); E11.649 Type 2 diabetes mellitus with hypoglycemia without coma; Z90.49 Acquired absence of other specified parts of digestive tract; I50.9 Heart failure, unspecified; E11.22 Type 2 diabetes mellitus with diabetic chronic kidney disease; Z79.84 Long term (current) use of oral hypoglycemic drugs
CPT/HCPCS: 36415; 74176; 80053; 81001; 82550; 82553; 82948; 83690; 83880; 84484; 85025; 85610; 93005; 96361; 99285; J1170; J1200; J2405; J2543; J7030; J7042; J7799